=== PATIENT | female | born 1975 | race Caucasian/White ===

== ENCOUNTER 2020-02-09 12:34 | Emergency (ER) | payer OTHER, SELFPAY ==
--- NOTE | ~2020-02-09 | CT_ITS ---
EXAMINATION: CT abdomen pelvis wo con DATE: 02/09/2020 16:36 INDICATION: Left flank pain and dysuria. TECHNIQUE: Computed tomography (CT) of the abdomen and pelvis was performed without intravenous contr ast. Automated exposure control and iterative reconstruction technique were employed. The dose-length product was 1027.30 mGy-cm. COMPARISON: 05/24/2018 FINDINGS: Couple 2 mm pulmonary nodules, calcified on the left and noncalcified on the right. Mild atelectasis/ scarring at the lingula, right middle lobe and left lower lobe. Heart size is normal. No pericardial or pleural effusion. Small sliding-type hiatal hernia. Liver, gallbladder, spleen, pancreas and bilat eral adrenal glands are normal. Prominent bilateral medullary nephrocalcinosis. 1 mm stone at the dis talmost right ureter within 1 cm of the ureterovesicular junction. No stones seen along the left uret er. No hydronephrosis in either kidney. There is mild colonic diverticulosis with a sigmoid predomina nce. There is no adjacent inflammatory change to suggest diverticulitis. Small bowel and appendix ar e normal. The partially decompressed bladder is unremarkable. Again seen are couple surgical clips al dariana the left ovary and left side of the uterus. Right adnexa is unremarkable. No free intraperitoneal gas or fluid. No pathologically enlarged abdominal or pelvic lymphadenopathy. Tiny fat-containing um bilical hernia. Mild scattered degenerative skeletal changes in the spine and at both hips. IMPRESSION: 1. Extensive bilateral renal medullary nephrocalcinosis with 4 mm nonobstructing stone at the distalm ost RIGHT ureter. No hydronephrosis or left ureteral stones. 2. Mild diverticulosis. 3. Small sliding-type hiatal hernia. Reviewed, dictated and finalized at location A. IMPRESSION: 1. Extensive bilateral renal medullary nephrocalcinosis with 4 mm nonobstructin g stone at the distalmost RIGHT ureter. No hydronephrosis or left ureteral ston es. 2. Mild diverticulosis. 3. Small sliding-type hiatal hernia.
[2020-02-09 12:53] VITALS: BP 144/100; PULSE 98; RESP 18; TEMP 37.1; O2SAT 100
[2020-02-09 13:56] LABS: Basophils Percent Auto 0.4 % (0.2-1.2); Eosinophils Absolute Auto 0.1 K/mm3 (0-0.3); Eosinophils Percent Auto 1.3 % (0-4.4); Hematocrit 43.7 % (37.0-47.0); Hemoglobin 13.5 g/dL (12.0-15.0); Immature Granulocyte Absolute 0.04 K/mm3 (0.00-0.031); Immature Granulocyte Percent A 0.4 % (0-0.5); Lymphocytes Absolute Auto 2.58 K/mm3 (0.9-3.2); Lymphocytes Percent Auto 23.9 % (18.3-44.2); Mean Corpuscular HGB Conc 30.9 g/dl (32-36); Mean Corpuscular Volume 87.4 fl (80-100); Mean Platelet Volume 9.6 fl (7.4-10.4); Monocytes Absolute Auto 0.6 K/mm3 (0.1-0.6); Monocytes Percent Auto 5.4 % (2.6-8.5); Neutrophils Absolute Auto 7.4 K/mm3 (1.3-6.7); Neutrophils Percent Auto 68.6 % (45.5-73.1); Platelet Count Result 227 k/mm3 (150-375); Red Cell Distribution Width 16.1 % (11.5-14.5); White Blood Count 10.8 K/mm3 (4.5-10.0)
[2020-02-09 14:28] LABS: Alanine Aminotransferase 28 U/L (4-35); Alkaline Phosphatase 86 U/L (38-126); Aspartate Amino Transferase 29 U/L (14-36); Bilirubin,Total 0.8 mg/dL (0.2-1.3); Blood Urea Nitrogen 21 mg/dL (7-17); Calcium 9.2 mg/dL (8.4-10.2); Carbon Dioxide 21 mmol/L (22-30); Chloride 106 mmol/L (98-107); Estimated Glomerular Filt Rate 18; Glucose 93 mg/dL (65-105); Potassium 4.1 mmol/L (3.4-5.0); Sodium 137 mmol/L (137-145)
[2020-02-09 14:29] LABS: Lactic Acid Reflex 0.8 mmol/L (0.7-2.1)
[2020-02-09 14:30] LABS: CRP 2.2 mg/dL (<1.0)
--- NOTE | 2020-02-09 14:30 | ECG_ITS ---
Measurements Intervals [place] Rate: 79 P: 1 AK: 134 QRS: -6 QRSD: 102 T: 16 QT: 370 QTc: 424 Interpretive Statements SINUS RHYTHM DELAYED PRECORDIAL R/S TRANSITION BORDERLINE ECG Electronically Signed On 02-09-2020 15:24:27 CDT by Adelso Russ D.O.
[2020-02-09 14:42] LABS: Add Urine Microscopic? YES; Appearance Urine Clear (Clear); Bacteria Urine Trace /hpf; Bilirubin Urine Negative (Negative); Blood Urine Negative (Negative); Color Urine Straw (Yellow); Glucose Urine UA Negative (Negative); Ketones Urine Negative (Negative); Leukocyte Esterase Ur Trace LEU/UL (Negative); Mucus Urine Rare /lpf; Nitrate Urine Negative (Negative); Protein Urine 3+ mg/dL (Negative); RBC Urine 0-2 /hpf (0-2); Specific Grav Ur 1.011 (1.001-1.035); Squamous Epithelial Cell Urine Moderate /hpf (Few); Urobilinogen Urine Negative mg/dL (<2.0)
[2020-02-09] MEDS: SODIUM CHLORIDE 0.9% IV 1,000 ML 999 ML IV CONT (14:52)
[2020-02-09 15:48] VITALS: BP 138/88; PULSE 88; RESP 16; O2SAT 98
--- NOTE | 2020-02-09 16:23 | ED.GENADULT ---
HPI - General Adult General Chief complaint: Unspecified Stated complaint: SHAKING,CHILLS, BODY ACHES Time Seen by Provider: 02/09/20 13:35 Source: patient Mode of arrival: ambulatory Limitations: no limitations History of Present Illness HPI narrative: This is a 44 year old female that presents to the ER for weakness. Reports for the last 2 days she has had chills. Reports this is usually how she feels when she has a kidney infection. Reports some discomfort with urination. Reports left-sided flank pain. Also reports some right lower quadrant cramping abdominal pain. Reports history of chronic kidney disease, she sees a paper grader in [place]. Also reports history of kidney stones, her urologist is also in [place]. Denies fever, nausea, vomiting, or hematuria. Related Data Home Medications Medication Instructions Recorded Confirmed fluoxetine mg 02/09/20 hydrocodone-acetaminophen 02/09/20 02/09/20 magnesium oxide 02/09/20 sodium bicarbonate 02/09/20 Allergies Allergy/AdvReac Type Severity Reaction Status Date / Time Cephalosporins Allergy Intermediate RASH Verified 02/09/20 12:55 Quinolones Allergy Unknown RASH Verified 02/09/20 12:55 Sulfa (Sulfonamide Allergy Unknown RASH Verified 02/09/20 12:55 Antibiotics) sulfamethoxazole Allergy Unknown RASH Verified 02/09/20 12:55 vancomycin AdvReac Intermediate RED MAN Verified 02/09/20 12:55 SYNDROME bactim Allergy Severe Rash Uncoded 05/24/18 17:40 Review of Systems Review of Systems: Narrative: CONSTITUTIONAL: Denies fever GASTROINTESTINAL: Reports abdominal pain. Denies nausea, vomiting, or diarrhea. GENITOURINARY: Reports dysuria. Denies hematuria. MUSCULOSKELETAL: Reports back pain All systems reviewed & are unremarkable except as noted in HPI and below PMFSH Past Medical History Medical History (Updated 02/09/20 @ 18:36 by Sara Maharaj PA-C) History of chronic kidney disease History of depression Social History Social History Gender identity (if verbalized by the patient): Female Exam Narrative: Exam Narrative: GENERAL: Well-appearing, well-nourished, and in no acute distress. HEAD: Normocephalic, atraumatic. EYES: EOMI. CHEST: Clear to auscultation. No respiratory distress. No wheezes rales or rhonchi HEART: Regular rate and rhythm. No murmur heard. Normal peripheral pulses. ABDOMEN: Soft, nontender, nondistended, normal active bowel sounds. No CVA tenderness EXTREMITIES: Normal range of motion. No edema. SKIN: Warm, dry, no rash. NEURO: No focal deficits. Alert and oriented x3. PSYCH: Normal mood and affect Course Consultations Consultation #1: Spoke with on-call urology at [place], Dr. Jones who will get message to patient's urologist Dr. Cobb. Patient will be sent home with urine strainer, Flomax and antibiotic. Date: 02/09/20 Time: 18:32 Vital Signs Vital signs: Vital Signs Temperature 98.7 F 02/09/20 12:53 Pulse Rate 98 02/09/20 12:53 Respiratory Rate 18 02/09/20 12:53 Blood Pressure 144/100 H 02/09/20 12:53 Pulse Oximetry 100 02/09/20 12:53 Temperature 98.7 F 02/09/20 12:53 Pulse Rate 88 02/09/20 15:48 Respiratory Rate 16 02/09/20 15:48 Blood Pressure 138/88 02/09/20 15:48 Pulse Oximetry 98 02/09/20 15:48 Medical Decision Making MDM Narrative Medical decision making narrative: Patient presents the emergency department for flank pain and abdominal pain. Also was reporting subjective fevers. Patient is afebrile and nontoxic-appearing. CBC with mild leukocytosis to 10.8. Metabolic panel with kidney function that is likely around patient's baseline as she reports she has stage IV kidney kidney disease. UA with white blood cells and trace leuk esterase, also with squamous epithelial cells. Unsure if this is a contaminated catch. This will go for a culture. CT scan of the abdomen and pelvis shows bilateral renal medullary nephrocalcinosis with a 4 mm nonobstructing stone a
== END 2020-02-09 19:07 | disposition home or self-care (01) ==
PROVIDERS: Physician Assistant; Emergency Provider Emergency Medicine; PCP Physician Assistant
DX: N20.0 Calculus of kidney (principal); N30.00 Acute cystitis without hematuria; N18.9 Chronic kidney disease, unspecified; Z87.442 Personal history of urinary calculi; R94.31 Abnormal electrocardiogram [ECG] [EKG]; K44.9 Diaphragmatic hernia without obstruction or gangrene; K57.90 Diverticulosis of intestine, part unspecified, without perforation or abscess without bleeding; F32.9 Major depressive disorder, single episode, unspecified
CPT/HCPCS: 36415; 74176; 80053; 81001; 81025; 83605; 85025; 86140; 87086; 87088; 93005; 96365; 99284; J0131; J7030

== ENCOUNTER 2020-09-13 14:56 | Outpatient (CLI) | payer OTHER, SELFPAY ==
--- NOTE | ~2020-09-13 | MM_ITS ---
EXAMINATION: MM screening [facility] HISTORY: Screening mammogram TECHNIQUE: Craniocaudal and mediolateral oblique 3-D tomosynthesis images were obtained and synthetic 2-D images were generated. CAD analysis was submitted and interpreted. COMPARISON: 07/20/2018, 06/10/2016 bilateral digital screening mammogram examinations BREAST PARENCHYMAL COMPOSITION: There are scattered areas of fibroglandular density. FINDINGS: There is no evidence of suspicious mass, calcification, or architectural distortion to sugg est malignancy in either breast. There has been no suspicious interval change. IMPRESSION: 1. No mammographic evidence of malignancy. 2. Recommend routine screening mammography in one year. BI-RADS Category 1: Negative Reviewed, dictated and finalized at location A. PATH THERAPIST
== END 2020-09-13 14:57 | disposition home or self-care (01) ==
LOC: ANHIMG 14:59
PROVIDERS: PCP Physician Assistant; Visit Provider Physician Assistant
DX: Z12.31 Encounter for screening mammogram for malignant neoplasm of breast (principal)
CPT/HCPCS: 77063; 77067

== ENCOUNTER 2021-09-14 15:34 | Outpatient (CLI) | payer OTHER, SELFPAY ==
--- NOTE | ~2021-09-14 | MM_ITS ---
EXAMINATION: MM screening [facility] BI w michael HISTORY: Screening mammogram TECHNIQUE: Craniocaudal and mediolateral oblique 3-D tomosynthesis images were obtained and synthetic 2-D images were generated. CAD analysis was submitted and interpreted. COMPARISON: 09/13/2020, 07/20/2018, 06/10/2016 BREAST PARENCHYMAL COMPOSITION: There are scattered areas of fibroglandular density. FINDINGS: There is no evidence of suspicious mass, calcification, or architectural distortion to sugg est malignancy in either breast. There has been no suspicious interval change. IMPRESSION: 1. No mammographic evidence of malignancy. 2. Recommend routine screening mammography in one year. BI-RADS Category 1: Negative Reviewed, dictated and finalized at location A. BLE TRACER
== END 2021-09-14 15:35 | disposition home or self-care (01) ==
LOC: ANHIMG 15:35
PROVIDERS: PCP Physician Assistant; Visit Provider Physician Assistant
DX: Z12.31 Encounter for screening mammogram for malignant neoplasm of breast (principal)
CPT/HCPCS: 77063; 77067

== ENCOUNTER 2023-01-13 14:46 | Outpatient (CLI) | payer OTHER, SELFPAY ==
--- NOTE | ~2023-01-13 | MM_ITS ---
EXAMINATION: MM screening [facility] BI w michael HISTORY: Screening mammogram TECHNIQUE: Craniocaudal and mediolateral oblique 3-D tomosynthesis images were obtained and synthetic 2-D images were generated. CAD analysis was submitted and interpreted. COMPARISON: 09/14/2021, 09/13/2020, 07/20/2018 BREAST PARENCHYMAL COMPOSITION: There are scattered areas of fibroglandular density. FINDINGS: No suspicious mass, calcification, or architectural distortion are identified in either andrea ast to suggest malignancy. There has been no suspicious interval change. IMPRESSION: 1. No mammographic evidence of malignancy. 2. Recommend routine screening mammography in one year. BI-RADS Category 1: Negative Reviewed, dictated and finalized at location A.
== END 2023-01-13 14:47 | disposition home or self-care (01) ==
LOC: ANHIMG 14:48
PROVIDERS: PCP Physician Assistant; Visit Provider Physician Assistant
DX: Z12.31 Encounter for screening mammogram for malignant neoplasm of breast (principal)
CPT/HCPCS: 77063; 77067

== ENCOUNTER 2024-04-12 09:39 | Outpatient (CLI) | payer OTHER, SELFPAY ==
--- NOTE | ~2024-04-12 | MM_ITS ---
EXAMINATION: MM screening [facility] HISTORY: Screening TECHNIQUE: Craniocaudal and mediolateral oblique 3-D tomosynthesis images were obtained and synthetic 2-D images were generated. CAD analysis was submitted and interpreted. COMPARISON: Comparison to multiple prior studies sequentially, with oldest reviewed study dated 05/25. BREAST PARENCHYMAL COMPOSITION: Not dense: There are scattered areas of fibroglandular density. FINDINGS: There is no evidence of suspicious mass, calcification, or architectural distortion to sugg est malignancy in either breast. There has been no suspicious interval change. IMPRESSION: 1. No mammographic evidence of malignancy. 2. Recommend routine screening mammography in one year. BI-RADS Category 1: Negative Reviewed, dictated and finalized at location B.
== END 2024-04-12 09:40 | disposition home or self-care (01) ==
PROVIDERS: PCP Physician Assistant; Visit Provider Physician Assistant
DX: Z12.31 Encounter for screening mammogram for malignant neoplasm of breast (principal)
CPT/HCPCS: 77063; 77067

== ENCOUNTER 2025-07-26 14:26 | Outpatient (CLI) | payer OTHER, SELFPAY ==
--- NOTE | ~2025-07-26 | MM_ITS ---
EXAMINATION: MM screening yosvany BI w michael HISTORY: Screening. TECHNIQUE: Craniocaudal and mediolateral oblique 3-D tomosynthesis images were obtained and synthetic 2-D images were generated. CAD analysis was submitted and interpreted. COMPARISON: 2023, 2022, and 2021 BREAST PARENCHYMAL COMPOSITION: Dense: The breasts are heterogeneously dense FINDINGS: No suspicious masses are seen. There are no suspicious calcifications. No unexplained architectural distortion is seen. There are no skin or nipple abnormalities identified. There is no adenopathy seen on the images submitted. IMPRESSION: No mammographic evidence to suggest malignancy is seen. The patient may return to screening mammography as per ACR guidelines. BI-RADS 1 - Negative. Reviewed, dictated and finalized at location B. [employer] OPERATOR
--- OUTSIDE RECORDS SUMMARY | 2025-07-26 15:46 | XMS_ITS | Encounter Summary ---
Author Organization [facility] Healthcare Address [address] [place] [address] Care Team Providers Care Cold Storage Worker Name Role Phone Lelia Owen Primary Care Provider [phone] Stu Lee MD Unavailable [phone] Uday Gamble RN Unavailable Encounter Details Date Type Department Care Team (Late st Contact Info) Description 05/26/2025 Results Follow-Up [facility] Medical Group Convenient Care at [address] [address] Riri Conde PA [address] [place] [address] [address] [place] [address] Urine culture Urine, clean voided Social History Tobacco Use Types Packs/Day Years Used Date Smoking Tobacco: Never Smokeless Tobacco: Never Alcohol Use Standard Drinks/Week Comments Yes 0 (1 standard drink = 0.6 oz pur e alcohol) rare Social Connection and Isolation Panel Answer Date Recorded In a typical week, how many times do you talk on the phone with family, friends, or neighbors? More than three times a week 07/10/2022 How often do you get togethe r with friends or relatives? Three times a week 07/10/2022 How often do you attend chur ch or sabianist services? More than 4 times per year 07/10/2022 Do you belong to any clubs o r organizations such as restorationist groups, unions, fraternal or athletic groups, or school groups? Yes 07/10/2022 How often do you attend meet ings of the clubs or organizations you belong to? More than 4 times per year 07/10/2022 Are you , , di vorced, , never , or living with a partner? 07/10/2022 AUDIT-C Answer Date Recorded Q1: How often do you have a drink containing alcohol? Never 03/01/2025 Q2: How many drinks containi ng alcohol do you have on a typical day when you are drinking? Patient does not drink Q3: How often do you have si x or more drinks on one occasion? Never 03/01/2025 Overall Financial Resource Strain (CARDIA) Answe r Date Recorded How hard is it for you to pa y for the very basics like food, housing, medical care, and heating? Not hard at all 07/10/2022 PHQ-2 Answer Date Recorded PHQ-2 Total Score (If total score is 3 or more points, staff should administer the PHQ-9) 0 03/01/2025 Hunger Vital Sign Answer Date Recorded Within the past 12 months, y ou worried that your food would run out before you got the money to buy more. Never true 09/25/19 24 Within the past 12 months, t he food you bought just didn't last and you didn't have money to get more. Never true 09/25/2023 PRAPARE - Transportation Answer Date Re corded In the past 12 months, has l ack of transportation kept you from medical appointments or from getting medications? No 06/25 In the past 12 months, has l ack of transportation kept you from meetings, work, or from getting things needed for daily living? No 07/10/2022 Personal Safety Answer Date Recorded Have you ever been in or are you currently in a harmful physical or emotional relationship or is someone making you feel afraid or unsafe? 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 Gender Identity Female 01/12/2021 10:32 AM CDT Sexual Orientation Straight 05/05/2019 9: 16 AM CDT documented as of this encounter Plan of Treatment Not on file documented as of this encounter Visit Diagnoses Not on filedocumented in this encounter Care Teams Cold Storage Worker Relationship Specialty Start Date End Date Lelia Owen PA [address] [place] [address] PCP - General 07/04/17 Stu Lee MD [address] [facility] [address] [place], [place] [id number] Referring Physician Nephrology 06/14/21 Uday Gamble, RN [address] [facility] [address] [place] [address] E Learning Developer 07/09/22 documented as of this encounter
--- OUTSIDE RECORDS SUMMARY | 2025-07-26 15:46 | XMS_ITS | Clinical Summary ---
Author Organization [facility] Address [address] [place] [address] Care Team Providers Care Combatant Diver Officer Name Role Phone Unavailable Primary Care Provider Unavailabl e Social History Tobacco Use Types Packs/Day Years Used Date Smoking Tobacco: Never Assessed Comments Unknown Sex and Gender Information Value Date Recorded Sex Assigned at Not on file Legal Sex Female 7:22 PM CDT Gender Identity Not on file Sexual Orientation Not on file Plan of Treatment Health Maintenance Due Date Last Done Comments Cervical Cancer Screening Pap Smear (Age 30 to 64) Every 3 Years 1975 Colorectal Cancer Screening Colonoscopy (10 Years) 1975 Annual Physical 1978 Hepatitis C 1993 Cervical Cancer Screening Pap with HPV Testing (Age 30 to 64) Every 5 Years 2005 Cervical Cancer Screening with HPV 2005 Mammogram Screening 2015 Hepatitis B Vaccines (3 of 3 - 19+ 3-dose series) 04/12/2022 11/24/2021, 10/13/2021 COVID-19 Vaccine (3 - 2024- season) 2025 12/27/2021, 10/31/2020 Pneumococcal Vaccine: 50+ Years (1 of 1 - PCV) 2025 Zoster Vaccines (1 of 2) 2025 Influenza Adult (#1) 2025 08/23/2022, 05/25/2021, 05/31/2020, Additional history exists DTaP, Tdap and Td Vaccines (2 - Td or Tdap) 05/08/2027 05/08/2017 Hepatitis A Vaccines Aged Out No long er eligible based on patient's age to complete this topic Meningococcal B Vaccine Aged Out No l onger eligible based on patient's age to complete this topic Meningococcal Vaccine Aged Out No queta ana luisa eligible based on patient's age to complete this topic RSV Immunizations Under 20 Months Aged Out No longer eligible based on patient's age to complete this topic
--- OUTSIDE RECORDS SUMMARY | 2025-07-26 15:46 | XMS_ITS | Encounter Summary ---
Author Organization [facility] Healthcare Address [address] [facility] [place] [address] Care Team Providers Care Cover Making Machine Operator Name Role Phone Lelia Owen Primary Care Provider + [phone] Stu Lee MD Unavailable [phone] Uday Gamble RN Unavailable Encounter Details Date Type Department Care Team (Late st Contact Info) Description 07/05/2025 Results Follow-Up [facility] Medical Group Family Medicine [address] [facility] [address] [address] [place] [address] Lelia Owen PA [address] [facility] [facility] [address] [facility] [address] [place] [address] Vitamin B12 Social History Tobacco Use Types Packs/Day Years [...] week 07/10/2022 How often do you attend [facility] or anabaptism services? 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 [address] [place] [address] Loan Operations Specialist 07/09/22 documented as of this encounter
--- OUTSIDE RECORDS SUMMARY | 2025-07-26 15:46 | XMS_ITS ---
Author Organization [facility] Healthcare Address [address] [place] [address] Care Team Providers Care Business Analytics Manager Name Role Phone Lelia Owen Primary Care Provider [phone] Stu Lee MD Unavailable [phone] Uday Gamble RN Unavailable Transplant Episode Kidney Recipient [facility] ([place], [place]) - [facility] Organ Received: Left Kidney Transplanted on 07/09/2022 Marked as Active Follow-up on 07/09/2022 Reason: Transplanted at [facility] Kidney CoordinatorUday Gamble RN Fax: N/A Email: N/A Infection History Noted Survival Infection Treatment Organism Resolved 08/23/2022 45 days Kidney transplant infection Donor Information Organ ABO Source Meets Risk Criteria HLA Match Mismatches Cross Match Left Kidney Transplanted O Positive Live A: B: DR: Left Kidney Donor Serology Results Anti-CMV CMV IgG: Positive EBV IgG EBV VCA IgG: Positive Anti-HBcAb HBC Total: Nonreactive HBsAg HBsAg: Nonreactive HBV DNA HBV DNA: Not Detected Anti-HCV HCV Ab: Nonreactive Anti-HIV I/II HIV Ag/Ab Combo Assay: Nonreactive Anti-HTLV I/II No results on file RPR/VDRL RPR: Nonreactive EBV IgM No results on file HBsAb HBsAb: Nonreactiv e EBNA No results on file SARS CoV-2 No results on file Care Team Name Role Phone Fax Email Uday Gamble, ARCHANA Kidney Coordinator [phone] N/A N/A Stu Lee MD Referring Physician [phone] N/A Leonora Parra Secondary Manager Compensation N/A N/A N/A Uday Gamble RN Storage Battery Tester [phone] N/A N/A Tere Araya RN Pre Coordinator [phone] N/A Scotty Crespo Primary Manager Compensation N/A N/A N/A Krystyna Hayward Administrative Personal Assistant [phone] N/A N/A Jumana Crespo RN Secondary Coordinator Secondary Post Kidney Coordinator [phone] N/A N/A Events Post-Transplant Pre-Transplant Admitted: 07/09/2022 Referred: 06/12/2021 Transplanted: 07/09/2022 Evaluation began: 1 Discharged: 07/16/2022 Committee: 09/24/2021 Center waitlisted: 2
--- OUTSIDE RECORDS SUMMARY | 2025-07-26 15:46 | XMS_ITS | Clinical Summary ---
Author Organization [facility] Address [address] [place] [address] Care Team Providers Care Appliance Adjuster Name Role Phone Lelia Owen Primary Care Provider [phone] Stu Lee MD Unavailable [phone] Uday Gamble RN Unavailable Allergies Active Allergy Reactions Criticality Noted Date Comments Cefazolin Sodium Rash Medium 06/26/2023 Levofloxacin Rash Medium Sulfa (Sulfonamide Antibiotics) Rash Medium 05/04/2020 Sulfamethoxazole-Trimethopr im Rash Medium 06/26/2023 Vancomycin Rash Medium 06/26/2023 Patient had knee surgery in 2023 and received vancomycin with no reaction. Medications Tri-Yusra 0.01-4-0.05 % creamIndicati ons:ago spots Apply topically nightly 03/25/20 23 Active cholecalcifer ol (VITAMIN D-3) 2000 unit tabletIndicat ions:suppleme nt-transplant Take 1 tablet (2,000 Units total) by mouth every morning 90 tablet 3 06/12/20 23 Active famotidine (PEPCID) 20 mg tablet Take 1 tablet (20 mg total) by mouth as needed for heartburn Active ferrous sulfate 325 mg (65 mg of elemental iron) tabletIndicat ions:Iron Deficiency Anemia Take 1 tablet (325 mg total) by mouth daily with breakfast Active vitamins K6-C3-B6-B12- protease 2.5 mg-2.5 mg- 5 mg-100 mcg tablet Take by mouth Active tirzepatide (MOUNJARO) 5 mg/0.5 mL pen injector DIRECTED SUBCUTANEOUSLY ONCE A WEEK Active FLUoxetine (PROzac) 20 mg capsuleIndica tions:Moderat e episode of recurrent major depressive disorder (HCC) TAKE ONE CAPSULE BY MOUTH DAILY ALONG WITH 40MG 90 capsule 1 01/25/20 25 Active tacrolimus XR (ENVARSUS XR) 1 mg tablet extended release 24 hrIndications :immunosuppre ssion Take 3 tablets (3 mg total) by mouth daily 90 tablet 11 01/27/20 25 2025 Active celecoxib (CeleBREX) 100 mg capsule Take 1 capsule (100 mg total) by mouth daily 30 capsule 04/20/20 25 Active FLUoxetine (PROzac) 40 mg capsuleIndica tions:Anxiety TAKE 1 CAPSULE(40 MG) BY MOUTH EVERY MORNING 90 capsule 1 04/26/[address] (PROTONIX) 40 mg EC tablet TAKE ONE TABLET BY MOUTH EVERY MORNING 90 tablet 3 05/12/20 25 Active ALPRAZolam (XANAX) 0.5 mg tabletIndicat ions:Anxiety TAKE 1 TABLET(0.5 MG) BY MOUTH EVERY 8 HOURS NEEDED FOR ANXIETY 20 tablet 06/14/20 25 Active aspirin 81 mg enteric coated tablet TAKE ONE TABLET BY MOUTH EVERY MORNING 90 tablet 3 06/14/20 25 Active predniSONE (DELTASONE) 5 mg tablet TAKE ONE TABLET BY MOUTH EVERY MORNING 90 tablet 3 06/14/20 25 Active lisinopriL (PRINIVIL,ZES TRIL) 2.5 mg tabletIndicat ions:Kidney replaced by transplant TAKE 1 TABLET(2.5 MG) BY MOUTH DAILY 30 tablet 11 07/13/20 25 Active lisinopriL (PRINIVIL,ZES TRIL) 2.5 mg tabletIndicat ions:Kidney replaced by transplant Take 1 tablet (2.5 mg total) by mouth daily 90 tablet 2 06/21/20 25 2024 Discontinued Active Problems Patient Care Coordination No te Formatting of this note migh t be different from the original. Verbal Consent: Deangelo (spouse), Madhu (son), Mariely ([id number]) Pharmacy: [facility] Specialty: [facility]: P: [phone] F: [phone] Q-MONTHLY, FK, UPE; Q-3 ROUTINE (Exp 08/31/25) HH: [facility] *Labs starting Thursday 07/19 due to the holiday. Problem Noted Date Diagnosed Date Arthritis of right hand 04/21/2025 BMI 37.0-37.9, adult 09/02/2024 Assessment & Plan (03/01/2025 7:31 AM CDT): Discussed the patient's BMI. The BMI is above average. BMI management plan is completed. BMI Follow-up includes: nutrition counseling, exercise counseling and education provided. Assessment & Plan (09/02/2024 7:45 AM PASSENGER CAR CLEANING SUPERVISOR): Discussed the patient's BMI. The BMI is above average. BMI management plan is completed. BMI Follow-up includes: nutrition counseling, exercise counseling and education provided. Stage 3b chronic kidney disease 03/09/2024 Assessment & Plan (09/12/2024 9:04 PM PASSENGER CAR CLEANING SUPERVISOR): Avoid nephrotoxic drugs including NSAIDs. Monitor labs. Assessment & Plan (03/09/2024 9:42 AM CDT): Avoid nephrotoxic drugs including NSAIDs. Monitor labs. Hypertension, renal disease, stage 1-4 or unspecified chronic kidney disease 03/09/2024 Assessment & Plan (09/12/2024 9:05 PM PASSENGER CAR CLEANING SUPERVISOR): Bp is stable/in acceptable range for any co-morbidities. Encouraged to limit sodium intake and exercise for weight control. Avoid nephrotoxic drugs including NSAIDs. Monitor labs. Continue lisinopril 2.5 Assessment & Plan (03/09/2024 9:44 AM CDT): Bp is stable/in acceptable range for any co-morbidities. Encouraged to limit sodium intake and exercise for weight control. Avoid nephrotoxic drugs including NSAIDs. Monitor labs. Continue Zestril 2.5 Dysphagia 05/06/2023 Morbid obesity 01/15/2023 Assessment & Plan (03/01/2025 7:31 AM CDT): Discussed the patient's BMI. The BMI is above average. BMI management plan is completed. BMI Follow-up includes: nutrition counseling, exercise counseling and education provided. Assessment & Plan (09/12/2024 9:05 PM PASSENGER CAR CLEANING SUPERVISOR): Discussed the patient's BMI. The BMI is above average. BMI management plan is completed. BMI Follow-up includes: nutrition counseling, exercise counseling and education provided. Patient has an obesity-related condition (not limited to: hypertension, obstructive sleep apnea, osteoarthritis, hyperlipidemia, diabetes, etc.). Therefore, morbid obesity may be documented for patients with a BMI between 35.00-39.99. Assessment & Plan (03/09/2024 9:41 AM CDT): Discussed the patient's BMI. The BMI is above average. BMI management plan is completed. BMI Follow-up includes: nutrition counseling, exercise counseling and education provided. Discussed weight management issues for approximately 15 minutes. Encouraged to log all food/drink/intake to determine daily caloric intake. Reviewed 3500 calories = 1# of weight so have to register a deficit to lose. Discussed obtaining this by decreasing daily caloric intake and or increasing exercise. Discussed decreasing carbs. Maintaining enough protein. Monitor/be aware of serving size. Increase water. Avoid sugar sweetened drinks. Discussed SG LT ease and provide the names of ones that can use for weight loss. Encouraged her to check with her insurance for coverage as well with the transplant team and if this is an option we will consider Assessment & Plan (10/27/2023 7:26 AM PASSENGER CAR CLEANING SUPERVISOR): Discussed the patient's BMI. The BMI is above average. BMI management plan is completed. BMI Follow-up includes: nutrition counseling, exercise counseling and education provided. Assessment & Plan (01/27/2023 2:01 PM CDT): Discussed the patient's BMI. The BMI is above average. BMI management plan is completed. BMI Follow-up includes: nutrition counseling, exercise counseling and education provided. Patient has an obesity-related condition (not limited to: hypertension, obstructive sleep apnea, osteoarthritis, hyperlipidemia, diabetes, etc.). Therefore, morbid obesity may be documented for patients with a BMI between 35.00-39.99. Dyslipidemia 12/23/2022 Assessment & Plan (03/09/2024 9:40 AM CDT): Encouraged patient to follow low fat/low chol diet like the Mediterranean diet. Increase good fats in the diet. Increase exercise. Monitor labs as needed. Assessment & Plan (01/27/2023 2:00 PM CDT): Encouraged patient to follow low fat/low chol diet like the Mediterranean diet. Increase good fats in the diet. Increase exercise. Monitor labs as needed. Encounter for long-term (cur rent) use of high-risk medication 12/23/2022 Assessment & Plan (09/12/2024 9:04 PM PASSENGER CAR CLEANING SUPERVISOR): Continue per renal transplant team as she is on immunosuppressant medications Assessment & Plan (01/27/2023 2:01 PM CDT): Continue per transplant team Kidney transplant infection 08/23/2022 Perinephric fluid collection of kidney transplan t 08/13/2022 Assessment & Plan (08/13/2022 7:56 PM PASSENGER CAR CLEANING SUPERVISOR): - Doing well since hospital discharge. She has no fevers, chills, or other signs or symptoms concerning for infection. No urinary symptoms. She is tolerating antibiotics well. Renal function continues to improve. Imaging from yesterday shows resolution of perinephritic fluid collection. I expect her IR drain will be removed later today. - Continue IV ceftriaxone to complete planned 4 week course for treatment of post-transplant perinephritic fluid collection and UTI. FIRM STOP on 08/20/22. Central line should be removed when IV antibiotics are completed. - I will discuss with transplant team if they feel additional oral antibiotics are necessary given early infection after transplant. If so, I would recommend they give an oral 3rd generation cephalosporin as her Bactrim OI prophylaxis will not provide any coverage for the E coli that was isolated. - Discussed with patient the rational for treatment, culture results, risk of recurrent infection, signs/symptoms of recurrent infection, and to contact ID clinic with any questions or concerns Kidney replaced by transplant 07/15/2022 Assessment & Plan (09/12/2024 9:04 PM PASSENGER CAR CLEANING SUPERVISOR): Continue per renal transplant team Assessment & Plan (03/09/2024 9:39 AM CDT): Status post kidney transplant. Continue per transplant team Assessment & Plan (01/27/2023 2:00 PM CDT): Continue per transplant team Assessment & Plan (09/21/2022 8:25 PM PASSENGER CAR CLEANING SUPERVISOR): Status post transplant in 06/2022 ESRD (end stage renal disease) 07/09/2022 Immunosuppression 06/28/2022 Assessment & Plan (09/12/2024 9:04 PM PASSENGER CAR CLEANING SUPERVISOR): Patient on lifetime immunosuppressants due to renal transplant status Assessment & Plan (09/21/2022 8:25 PM PASSENGER CAR CLEANING SUPERVISOR): Continue per transplant team as on multiple medicines following transplant Psychophysiological insomnia 01/09/2022 Nonsmoker 01/09/2022 Arthritis of carpometacarpal (CMC) joint of righ t thumb 12/12/2021 H/O total vaginal hysterectomy 03/02/2021 Overview (03/19/2021): Dr. Louis 03/02/2021 Vaginal HYST with BSO Assessment & Plan (03/19/2021 3:53 PM CDT): Recovering well. Denies Vasomotor sxs. F.u With Dr. Louis to discuss ERT if needed. Diabetes mellitus screening 03/19/2020 Assessment & Plan (09/12/2024 9:05 PM PASSENGER CAR CLEANING SUPERVISOR): Check labs Assessment & Plan (03/09/2024 9:39 AM CDT): Check labs Assessment & Plan (03/19/2020 11:39 PM CDT): Check labs Breast cancer screening by mammogram 03/19/2020 Assessment & Plan (09/12/2024 9:05 PM PASSENGER CAR CLEANING SUPERVISOR): Mammogram order provided Assessment & Plan (03/09/2024 9:39 AM CDT): Mammogram order provided Assessment & Plan (09/21/2022 8:24 PM PASSENGER CAR CLEANING SUPERVISOR): Mammogram order provided Assessment & Plan (09/15/2021 8:24 PM PASSENGER CAR CLEANING SUPERVISOR): Mammogram order provided Assessment & Plan (03/19/2020 11:39 PM CDT): Mammogram order provided. History of total knee arthroplasty 01/18/2020 Osteoarthritis 11/01/2019 Abscess 07/10/2019 Assessment & Plan (07/10/2019 8:30 PM PASSENGER CAR CLEANING SUPERVISOR): Unable to obtain a culture from the open/draining abscess. Start Keflex. Keep area clean and dry. Warm compress as needed. Call with increased sxs/signs infection/problems. Osteoarthritis of left knee 06/01/2019 Right hand pain 05/31/2019 Secondary hyperparathyroidism ([facility]) 05/04/20 19 Assessment & Plan (03/19/2020 11:37 PM CDT): Continue per nephrology Arthritis of carpometacarpal (CMC) joint of left thumb 12/09/2018 Nephrolithiasis 07/28/2018 Overview (07/28/2018): Added automatically from request for surgery [id number] RTA (renal tubular acidosis) 05/18/2018 Assessment & Plan (04/15/2022 12:55 AM CDT): Continue per Nephrology. Patient is on transplant list and her has been declared a match. Planning transplant in June Assessment & Plan (03/19/2021 3:56 PM CDT): Continue per nephrology. States has one more draw for renal function with Dr. Louis Assessment & Plan (03/19/2020 11:37 PM CDT): Continue per nephrology Chronic anxiety 01/26/2018 Assessment & Plan (03/09/2024 9:39 AM CDT): Stable with Prozac 40. And Xanax p.r.n.. Assessment & Plan (04/15/2022 12:56 AM CDT): This is a significant, separately identifiable problem that was evaluated and managed on the same day as the wellness exam Patient has noted increased anxiety symptoms with everything that is going on with transplant as well as her dog has been sick. She has been a Prozac 20 mg with Xanax p.r.n.. Noting she is using more p.r.n. Xanax. Will increase the Prozac to 40 mg. Reassess in 6-8 weeks Assessment & Plan (09/15/2021 8:23 PM PASSENGER CAR CLEANING SUPERVISOR): Stable continue Prozac and Xanax p.r.n. 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 SNAP home study Assessment & Plan (09/21/2022 8:24 PM PASSENGER CAR CLEANING SUPERVISOR): Encouraged follow-up with sleep medicine as soon as it is safe based on her transplant. Assessment & Plan (02/11/2022 4:40 PM CDT): Discussed comorbidities associated with sleep apnea, including effects on weight, and stressed importance of adequate treatment if present. Sleep center appointment planned for 02/2022 Assessment & Plan (09/01/2020 11:08 PM PASSENGER CAR CLEANING SUPERVISOR): Will try to track down the sleep study to see if she can get a new machine or if needs a new study. Request from [facility]. Assessment & Plan (03/19/2020 11:40 PM CDT): This is a significant, separately identifiable problem that was evaluated and managed on the same day as the wellness exam Needs to use the CPAP Will place new order with [facility] so she can get a new machine. Gastroesophageal reflux disease without esophagi tis 11/04/2016 Assessment & Plan (09/12/2024 9:04 PM PASSENGER CAR CLEANING SUPERVISOR): Continue PPI. If symptoms and coughing continues may need to follow back up with Dr. Pascal to determine if she needs to have dilatation again. Assessment & Plan (03/19/2020 11:36 PM CDT): Stable without medication Dysmenorrhea 01/04/2016 Moderate episode of recurrent major depressive d isorder 11/30/2015 Assessment & Plan (09/12/2024 9:04 PM PASSENGER CAR CLEANING SUPERVISOR): Depression symptoms stable. Continue the Prozac 40+ 24 total of 60 daily and the Xanax p.r.n.. Assessment & Plan (03/09/2024 9:39 AM CDT): Stable with Prozac 40 and Xanax p.r.n.. Assessment & Plan (10/27/2023 1:12 PM PASSENGER CAR CLEANING SUPERVISOR): Patient is recognizing some increased emotional symptoms but admits to a lot of changes at home. She still thinks it may be related to the persistent and required prednisone use due to her kidney transplant. Currently on Prozac 60 mg. Will continue with that medication. Discussed counseling and scheduling a different things that she can do to help address some of her concerns. Strongly encouraged her to work on these. If her symptoms increase she can call at any time and we can adjust medications but discussed the benefit of doing counseling to see if we can do some lifestyle changes and behavioral changes prior to adding in more medication. She is also very concerned about her weight. Provided information on G [facility] then she will check with her insurance as well as the transplant team to see if this may be available as an option at some point to assist in weight loss as this also plays into her depression symptoms. Assessment & Plan (01/27/2023 2:02 PM CDT): Will continue the Prozac 40. Will continue to monitor closely if she feels like her symptoms continue to peak may consider changing medications for better control. Assessment & Plan (09/21/2022 8:26 PM PASSENGER CAR CLEANING SUPERVISOR): Stable with Prozac 40. Assessment & Plan (06/01/2022 6:51 PM CDT): Improvement with increase the Prozac to 40 mg. Will continue with same dose. Using less Xanax but I wonder have it available if she goes since at this time of transplant. Continue to monitor. Assessment & Plan (04/15/2022 12:56 AM CDT): This is a significant, separately identifiable problem that was evaluated and managed on the same day as the wellness exam Patient has noted increased anxiety symptoms with everything that is going on with transplant as well as her dog has been sick. She has been a Prozac 20 mg with Xanax p.r.n.. Noting she is using more p.r.n. Xanax. Will increase the Prozac to 40 mg. Reassess in 6-8 weeks Assessment & Plan (03/19/2021 3:57 PM CDT): Stable with Prozac and prn Xanax Assessment & Plan (02/15/2021 8:07 AM CDT): Stable with prozac Assessment & Plan (02/10/2021 7:57 PM CDT): Discussed depression at length including treatment options of medication, counseling and behavioral modification. Encouraged good sleep hygeine, good nutrition and exercise. Will continue to monitor closely. Currently no suicidal or homicidal thoughts. May call at anytime if needs assistance. Will restart Prozac 20mg daily Reviewed risks, benefit, alternatives, side effects and proper use. F.u 4-6 weeks to reassess. Assessment & Plan (09/01/2020 11:10 PM PASSENGER CAR CLEANING SUPERVISOR): Patient stopped Prozac. She feels like her sxs are currently stable without medication. Will monitor closely to see if pushes into remission. Assessment & Plan (03/19/2020 11:38 PM CDT): Continue Prozac Fatigue 11/30/2015 Assessment & Plan (09/12/2024 9:05 PM PASSENGER CAR CLEANING SUPERVISOR): Probably multifactorial. Check labs and followup to re-evaluate Assessment & Plan (03/09/2024 9:39 AM CDT): Probably multifactorial. Check labs and followup to re-evaluate Assessment & Plan (02/11/2022 4:29 PM CDT): Labs. Discussed importance of adequate sleep; good sleep hygiene in controlling weight as well as for overall health. Assessment & Plan (03/19/2020 11:38 PM CDT): Probably multifactorial. Check labs and followup to re-evaluate Vitamin D deficiency 11/30/2015 Assessment & Plan (09/12/2024 9:05 PM PASSENGER CAR CLEANING SUPERVISOR): Supplement Assessment & Plan (03/09/2024 9:39 AM CDT): Supplement Assessment & Plan (02/11/2022 4:38 PM CDT): Labs. On supplement daily. Assessment & Plan (03/19/2020 11:37 PM CDT): supplement Renal osteodystrophy 01/31/2014 Medullary sponge kidney 03/25/2007 Resolved Problems Problem Noted Date Diagnosed Date Resolved Date Annual physical exam 03/09/2024 025 Assessment & Plan (03/09/2024 9:42 AM CDT): Encouraged healthy lifestyle, good nutrition and exercise. Encouraged Calcium and Vitamin D and weight bearing exercise for bone health. Reviewed immunizations Reviewed age appropirate screenings. BMI 40.0-44.9, adult 03/08/2024 025 Assessment & Plan (03/08/2024 7:47 AM CDT): Discussed the patient's BMI. The BMI is above average. BMI management plan is completed. BMI Follow-up includes: nutrition counseling, exercise counseling and education provided. Arthritis of left knee 12/30/202303/08 BMI 40.0-44.9, adult 05/06/2023 024 Assessment & Plan (10/27/2023 7:26 AM PASSENGER CAR CLEANING SUPERVISOR): Discussed the patient's BMI. The BMI is above average. BMI management plan is completed. BMI Follow-up includes: nutrition counseling, exercise counseling and education provided. Assessment & Plan (05/06/2023 11:15 AM CDT): Discussed the patients BMI: The BMI is above average BMI management is complete. BMI follow-up includes: Nutrition Counseling and education provided BMI 39.0-39.9,adult 01/15/2023 10/27/19 24 Assessment & Plan (01/15/2023 3:29 PM CDT): Discussed the patient's BMI. The BMI is above average. BMI management plan is completed. BMI Follow-up includes: nutrition counseling, exercise counseling and education provided. Gallstones 08/29/2022 09/21/2022 Overview (08/29/2022): Added automatically from request for surgery [id number] HANK (acute kidney injury) 07/22/2022 Metabolic and nutritional disorder 02/11/2022 09/12/2024 Assessment & Plan (04/17/2022 8:45 PM CDT): Reviewed interim labs. Continue low-carb (<150 g/day), low-glycemic diet. Will discuss possible use of GLP-1 RA with nephrology. Assessment & Plan (02/11/2022 4:41 PM CDT): Labs. Discussed increased risk for DM in setting of obesity and FHx DM. Discussed insulin resistance including effect on weight and risk for progression to diabetes. Recommended low-carb, low-glycemic diet; choose whole grains and avoid more highly processed carbohydrates. Discussed potential benefits of this w/r/t gut microbiome. Referred to ADA and [employer] websites for additional information on topics including glycemic index/carbohydrate choices, protein sources. Referred to check with service secretary/transplant team on dietary protein limitations. More detailed recommendations pending review of labs and food record. Class 2 obesity with body ma ss index (BMI) of 37.0 to 37.9 in adult 02/11/2022 09/21/2022 Assessment & Plan (04/17/2022 9:19 PM CDT): Obesity is unchanged. Diet interventions: as noted. Regular aerobic exercise program discussed. Pharmacotherapy as ordered. Discussed options limited by CKD, nephrolithiasis and sulfa allergy. Assessment & Plan (02/11/2022 4:37 PM CDT): General weight loss/lifestyle modification strategies discussed (elicit support from others; identify saboteurs; non-food rewards, etc). Diet interventions: as noted. Informal exercise measures discussed, e.g. taking stairs instead of elevator. Regular aerobic exercise program discussed. More detailed recommendations pending review of labs and food record. Weight loss counseling, encounter for 02/11/2022 09/12/2024 Assessment & Plan (04/17/2022 8:44 PM CDT): Reviewed calorie restriction based on BMR as previously detailed. Reviewed recommendation/goal of >/= 150 minutes/week moderate-intensity aerobic exercise. Asked to keep detailed food diary for at least 1 week and bring to next visit and/or continue tracking on phone. Assessment & Plan (02/11/2022 4:37 PM CDT): Discussed that significant health benefits/risk reduction may be seen with even 5% weight loss. Discussed that weight loss will require calorie deficit. Calculated basal metabolic rate and estimated total energy expenditure; discussed 500-1000 kcal/day deficit to lose 1-2 lb per week. Asked to keep detailed food diary for at least 1 week and bring to next visit. Discussed setting SMART goals. Discussed relatively small, although significant, role of exercise in weight loss; greater importance in weight maintenance as shown in [employer] study and National Weight Control Registry. Discussed recommendation/goal for 150 minutes per week moderate-intensity aerobic exercise. Arthralgia of left knee 12/17/202102/22 Right wrist pain 12/12/2021 09/12/2024 Colon cancer screening 09/15/202109/12 Assessment & Plan (01/27/2023 2:00 PM CDT): Colonoscopy is scheduled. Will await results Assessment & Plan (09/21/2022 8:24 PM PASSENGER CAR CLEANING SUPERVISOR): Transplant team would like her to have colonoscopy and not rely on the Cologuard. Order placed for Dr. Mathis. Assessment & Plan (09/15/2021 8:25 PM PASSENGER CAR CLEANING SUPERVISOR): Cologuard order placed Morbid obesity 09/03/2021 01/15/2023 Assessment & Plan (09/21/2022 8:24 PM PASSENGER CAR CLEANING SUPERVISOR): Discussed the patient's BMI. The BMI is above average. BMI management plan is completed. BMI Follow-up includes: nutrition counseling, exercise counseling and education provided. Patient has an obesity-related condition (not limited to: hypertension, obstructive sleep apnea, osteoarthritis, hyperlipidemia, diabetes, etc.). Therefore, morbid obesity may be documented for patients with a BMI between 35.00-39.99. Assessment & Plan (06/01/2022 6:51 PM CDT): Discussed the patient's BMI. The BMI is above average. BMI management plan is completed. BMI Follow-up includes: nutrition counseling, exercise counseling and education provided. Patient has an obesity-related condition (not limited to: hypertension, obstructive sleep apnea, osteoarthritis, hyperlipidemia, diabetes, etc.). Therefore, morbid obesity may be documented for patients with a BMI between 35.00-39.99. Assessment & Plan (04/15/2022 12:57 AM CDT): Discussed the patient's BMI. The BMI is above average. BMI management plan is completed. BMI Follow-up includes: nutrition counseling, exercise counseling and education provided. Patient has an obesity-related condition (not limited to: hypertension, obstructive sleep apnea, osteoarthritis, hyperlipidemia, diabetes, etc.). Therefore, morbid obesity may be documented for patients with a BMI between 35.00-39.99. Assessment & Plan (09/03/2021 4:11 PM PASSENGER CAR CLEANING SUPERVISOR): Obesity is unchanged. Discussed the patient's BMI. The BMI is above average. BMI management plan is completed. BMI Follow-up includes: nutrition counseling, exercise counseling and education provided. BMI 38.0-38.9,adult 09/03/2021 01/16/20 23 Assessment & Plan (09/21/2022 8:24 PM PASSENGER CAR CLEANING SUPERVISOR): Discussed the patient's BMI. The BMI is above average. BMI management plan is completed. BMI Follow-up includes: nutrition counseling, exercise counseling and education provided. Assessment & Plan (06/01/2022 6:51 PM CDT): Discussed the patient's BMI. The BMI is above average. BMI management plan is completed. BMI Follow-up includes: nutrition counseling, exercise counseling and education provided. Assessment & Plan (04/15/2022 12:57 AM CDT): Discussed the patient's BMI. The BMI is above average. BMI management plan is completed. BMI Follow-up includes: nutrition counseling, exercise counseling and education provided. Assessment & Plan (09/03/2021 4:11 PM PASSENGER CAR CLEANING SUPERVISOR): Obesity is unchanged. Discussed the patient's BMI. The BMI is above average. BMI management plan is completed. BMI Follow-up includes: nutrition counseling, exercise counseling and education provided. COVID-19 09/03/2021 09/21/2022 Overview (09/03/2021): -- while in [place]. Had Regeneron mAb while there. Annual physical exam 03/19/2021 023 Assessment & Plan (04/15/2022 12:56 AM CDT): Encouraged healthy lifestyle, good nutrition and exercise. Encouraged Calcium and Vitamin D and weight bearing exercise for bone health. Reviewed immunizations Reviewed age appropirate screenings. Assessment & Plan (03/19/2021 2:23 PM CDT): Encouraged healthy lifestyle, good nutrition and exercise. Encouraged Calcium and Vitamin D and weight bearing exercise for bone health. Reviewed immunizations Reviewed age appropirate screenings. Obesity (BMI 30-39.9) 03/19/20212021 Assessment & Plan (03/19/2021 3:33 PM CDT): Obesity is unchanged. Discussed the patient's BMI. The BMI is above average. BMI management plan is completed. BMI Follow-up includes: nutrition counseling, exercise counseling and education provided. BMI 37.0-37.9, adult 03/19/2021 022 Assessment & Plan (03/19/2021 3:33 PM CDT): Obesity is unchanged. Discussed the patient's BMI. The BMI is above average. BMI management plan is completed. BMI Follow-up includes: nutrition counseling, exercise counseling and education provided. BMI 38.0-38.9,adult 02/13/2021 03/19/20 21 Assessment & Plan (02/13/2021 3:50 PM CDT): Obesity is unchanged. Discussed the patient's BMI. The BMI is above average. BMI management plan is completed. BMI Follow-up includes: nutrition counseling, exercise counseling and education provided. Obesity (BMI 30-39.9) 02/13/20212020 Assessment & Plan (02/13/2021 3:50 PM CDT): Obesity is unchanged. Discussed the patient's BMI. The BMI is above average. BMI management plan is completed. BMI Follow-up includes: nutrition counseling, exercise counseling and education provided. Acute cystitis without hematuria 02/06/2021 03/08/2024 Assessment & Plan (02/06/2021 11:46 AM CDT): Will start cipro - she reports she takes it often without SEs and that it's the only thing that works for her UTIs. Will culture urine Advised f/u in 72h if not improving, sooner if worsening Advised tylenol q6h prn fever/pain Pelvic cramping 02/06/2021 03/08/2024 Assessment & Plan (02/15/2021 8:05 AM CDT): UTI appears to be resolving. She is still having abdominal pain. She is scheduled for ultrasound tomorrow morning. Will await those results. If she has increased pain fever chills or sweats she is to consider ER. Will follow-up with patient pending these ultrasound results. We will send tramadol a short course to hold her over until we determine the underlying cause of the pain. Assessment & Plan (02/06/2021 11:45 AM CDT): Will evaluate further with transvaginal US. She was advised to contact her wigs salesperson for further evaluation and treatment. Obesity (BMI 30-39.9) 01/25/20212020 Assessment & Plan (01/25/2021 10:43 AM CDT): Obesity is unchanged. Discussed the patient's BMI. The BMI is above average. BMI management plan is completed. BMI Follow-up includes: nutrition counseling, exercise counseling and education provided. BMI 38.0-38.9,adult 01/25/2021 02/14/20 Assessment & Plan (02/06/2021 11:22 AM CDT): Obesity is unchanged. Discussed the patient's BMI. The BMI is above average. BMI management plan is completed. BMI Follow-up includes: nutrition counseling, exercise counseling and education provided. Assessment & Plan (01/25/2021 10:44 AM CDT): Obesity is unchanged. Discussed the patient's BMI. The BMI is above average. BMI management plan is completed. BMI Follow-up includes: nutrition counseling, exercise counseling and education provided. BMI 39.0-39.9,adult 08/28/2020 01/26/20 21 Assessment & Plan (08/28/2020 3:50 PM PASSENGER CAR CLEANING SUPERVISOR): Obesity is unchanged. Discussed the patient's BMI. The BMI is above average. BMI management plan is completed. BMI Follow-up includes: nutrition counseling, exercise counseling and education provided. Annual physical exam 03/19/2020 021 Assessment & Plan (03/19/2020 11:39 PM CDT): Encouraged healthy lifestyle, good nutrition and exercise. Encouraged Calcium and Vitamin D and weight bearing exercise for bone health. Reviewed immunizations Reviewed age appropirate screenings. Lipid screening 03/19/2020 03/08/2024 Assessment & Plan (02/11/2022 4:39 PM CDT): Labs. Discussed role of diet, exercise and weight loss in improving lipid profile. Assessment & Plan (03/19/2020 11:39 PM CDT): Check labs Frequent urination 02/09/2020 Assessment & Plan (02/06/2021 11:46 AM CDT): Will start cipro - she reports she takes it often without SEs and that it's the only thing that works for her UTIs. Will culture urine Advised f/u in 72h if not improving, sooner if worsening Advised tylenol q6h prn fever/pain Assessment & Plan (02/09/2020 1:29 PM CDT): Proteinuria/trace blood/leukocytes. Could be UTI. Will defer to ER for treatment to get other labs. Palpitations 02/09/2020 09/12/2024 Assessment & Plan (02/09/2020 1:28 PM CDT): EKG is normal. Must rule out infection/sepsis, increased renal problems, PE. Needs labs, CXR to start workup but patient doesn't think she has the energy/ability to go to the different places right now to get stat results. Pt to go to ER to complete workup. Plans Raj. Obesity (BMI 30-39.9) 02/09/20202020 Assessment & Plan (09/01/2020 11:09 PM PASSENGER CAR CLEANING SUPERVISOR): Obesity is unchanged. Discussed the patient's BMI. The BMI is above average. BMI management plan is completed. BMI Follow-up includes: nutrition counseling, exercise counseling and education provided. Assessment & Plan (03/19/2020 11:37 PM CDT): Obesity is unchanged. Discussed the patient's BMI. The BMI is above average. BMI management plan is completed. BMI Follow-up includes: nutrition counseling, exercise counseling and education provided. Assessment & Plan (02/09/2020 1:30 PM CDT): Obesity is unchanged. Discussed the patient's BMI. The BMI is above average. BMI management plan is completed. BMI Follow-up includes: nutrition counseling, exercise counseling and education provided. Stage 4 chronic kidney disease 08/12/2019 03/08/2024 BMI 38.0-38.9,adult 07/08/2019 08/28/19 21 Assessment & Plan (03/19/2020 11:38 PM CDT): Obesity is unchanged. Discussed the patient's BMI. The BMI is above average. BMI management plan is completed. BMI Follow-up includes: nutrition counseling, exercise counseling and education provided. Assessment & Plan (02/09/2020 11:37 AM CDT): Obesity is unchanged. Discussed the patient's BMI. The BMI is above average. BMI management plan is completed. BMI Follow-up includes: nutrition counseling, exercise counseling and education provided. Assessment & Plan (07/08/2019 11:59 AM PASSENGER CAR CLEANING SUPERVISOR): Obesity is unchanged. Discussed the patient's BMI. The BMI is above average. BMI management plan is completed. BMI Follow-up includes: nutrition counseling, exercise counseling and education provided. Obesity (BMI 30-39.9) 07/08/20192019 Assessment & Plan (07/08/2019 12:00 PM PASSENGER CAR CLEANING SUPERVISOR): Obesity is unchanged. Discussed the patient's BMI. The BMI is above average. BMI management plan is completed. BMI Follow-up includes: nutrition counseling, exercise counseling and education provided. CKD (chronic kidney disease), stage III 05/18/2018 05/28/2021 Assessment & Plan (03/19/2021 3:56 PM CDT): Continue per nephrology. States has one more draw for renal function with Dr. Louis Assessment & Plan (03/19/2020 11:37 PM CDT): Avoid nephrotoxic drugs including NSAIDs. Monitor labs. Continue per nephrology Other chronic pain 04/13/2018 4 Daytime sleepiness 05/08/2017 0 Hypertension 05/03/2015 03/08/2024 Assessment & Plan (02/11/2022 4:39 PM CDT): Reviewed role of diet, exercise, weight loss in controlling blood pressure. Recommended low sodium/DASH diet. Assessment & Plan (03/19/2021 3:55 PM CDT): Bp is stable/in acceptable range for any co-morbidities. Encouraged to limit sodium intake and exercise for weight control. Currently stable without medication Assessment & Plan (09/01/2020 11:09 PM PASSENGER CAR CLEANING SUPERVISOR): Continue per nephrology as has CKD Assessment & Plan (03/19/2020 11:36 PM CDT): Bp is stable/in acceptable range for any co-morbidities. Encouraged to limit sodium intake and exercise for weight control. Stable without medication at this point Assessment & Plan (02/09/2020 1:26 PM CDT): Elevated today Metabolic acidosis 01/31/2014 Encounter for preventive health examination 06/12/2009 03/19/2020 Encounters Date Type Department Care Team Description 07/22/2025 Orders Only [facility] Medicine Nephrology [address] [facility] 5th [place] [address] [place] [address] Dutch Hodges MD 07/05/2025 Results Follow-Up [address] [place] [address] Lelia Owen PA Vitamin B12 06/21/2025 Orders Only [facility] Medicine Nephrology [address] [facility] 5[address] [place] [address] [place] [address] Dutch Hodges MD 05/26/2025 Results Follow-Up [facility] Care at [address] [phone] Riri Conde PA Urine culture Urine, clean voided 05/24/2025 3:34 PM CDT - 05/24/2025 11:59 PM CDT Hospital Encounter [address] [address] Acute right-sided low back pain without sciatica Discharge Disposition: Discharge to home or self care 05/24/2025 3:15 PM CDT Office Visit [facility] Care at [address] [phone] Scotty Dougherty NP Acute right-sided low back pain without sciatica (Primary Dx); History of kidney transplant 05/24/2025 Telephone [facility] Transplant Kidney [address] [facility] [address] [phone] [place] [address] Uday Gamble, ARCHANA 05/24/2025 Nurse Triage [address] [place] [address] Lelia Owen PA 05/19/2025 Orders Only [facility] Medicine Nephrology [address] [facility] [address] [place] [address] [place] [address] Dutch Hodges MD from Last 3 Months Immunizations Immunization Administration Dates Next Due COVID-19 mRNA ([employer]) 0.3 m L (30 mcg) vaccine (12 years and up) 06/11/2024 Hep A, Adult 03/12/2024,08/29/2023 Hep A, Unspecified 02/23/2024 Hep B Vaccine 2022,11/24/2021,10/13/2021 Influenza, Quadrivalent, [place]inos[place] l Culture-based MDCK, Preservative Free, Antibiotic Free, Intramuscular 06/06/2023,05/26/2019 Influenza, Quadrivalent, Spl it, Preservative Free, Intramuscular 08/23/2022,05/31/2020,05/21/2018,05/20 Influenza, Trivalent, IM (MDV) ,05/25/2018,05/25/2017,06/13 Influenza, Trivalent, Preser vative Free, Intramuscular 06/11/2024 Influenza, Unspecified 06/06/2023,2022(Deferred: Patient Refused),08/25/2022(Deferred: Patient Refused),09/25/2021(Deferred: Patient Refused),09/25/2021(Deferred: Patient Refused),05/25/2021,05/25/2020, Parris Lambert ([employer]) SARS-CoV-2 Vaccination 10/31/2020 Pfizer SARS-CoV-2 Monovalent Vaccination (12+ Yrs) SESAY-READY TO USE 12/28/2021 Pfizer SARS-CoV-2 Monovalent Vaccination (12+ Yrs) PURPLE 12/27/2021 Pfizer Sars-Cov-2 Bivalent V accination (12+ YRS) 06/06/2023 Pneumococcal Conjugate Pcv20 05/16/2023 Tdap 05/08/2017 ZOSTER Recombinant 03/01/2025,12/13/2024 Surgical History Surgery Date Site/Laterality Comments IA LITHOTRIPSY XTRCORP SHOCK WAVE Renal Lithotripsy - 12/29 NAME OF OPERATION: Cystoscopy, bilateral retrograde urography, intraoperative interpretation of radiology, right percutaneous renal access and dilation of the percutaneous tract, right percutaneous nephrolithotomy, right flexible ureterorenosco (Added by TW Conv) IA BIOPSY MUSCLE SUPERFICIAL Biopsy Muscle - (Added by TW Conv) IA LIG/TRNSXJ FLP TUBE ABDL/VAG APPR UNI/BI Tubal Ligation - (Added by TW Conv) TOTAL KNEE ARTHROPLASTY 01/05/2020 Right HAND SURGERY 05/04/2020 Left lt thumb 1st cmc arthroplasty JOINT REPLACEMENT 12/24/2019 - 01/23/2020 r knee HYSTERECTOMY 02/22/2021 - 03/24/2021 TUBAL LIGATION 2000 US GUIDED ASPIRATION ABSCESS HEMATOMA CYST SOFT TISSUE 07/24/2022 N/A CENTRAL LINE PLACEMENT > 5 YEARS 07/29/2022 N/A ABSCESS CATHETER INJECTION 08/13/2022 N/A CHOLECYSTECTOMY 08/30/2022 KIDNEY SURGERY 06/25/2020 - 07/24/2020 percutanenous nephrolithotomy x3 [facility] K[facility]NEY TRANSPL[facility] 07/09/2022 Right METACARPOPHALANGEAL JOINT ARTHROPLASTY 08/05/2023 Left left 1st CMC arthroplasty HAND ARTHROPLASTY 08/05/2023 Right 1st CMC arthroplsty, ligament reconstruction Medical History Medical History Date Comments Personal history of other mental and behavioral disorders History of anxiety - (Added by TW Conv) Irritability and anger Irritabil ity - (Added by TW Conv) Sleep apnea wears cpap GERD (gastroesophageal reflu x disease) Renal disorder STAGE IV Kidney stone Kidney stone Depression Obesity Anxiety unknown, does not hester ppen frequently Motion sickness Hypertension 12/2022 diagnoses after kidney transplant Anemia hx of transfusio n with kidney stone surgery 2019 [facility] Family History Medical History Relation Name Comments Arthritis Father Dad Diabetes Father Dad Family history of diabetes mellitus - (Added by TW Conv) Heart disease Father Dad Obesity Mother Arthritis Paternal Grandfather Pop Arthritis Paternal Grandmother Mommom Obesity Sister Anesthesia problems Neg Hx Relation Name Status Comments Father Dad Alive Maternal Grandfather Maternal Grandmother Mother Alive Paternal Grandfather Pop Paternal Grandmother Mommom Sister Social History Tobacco Use Types Packs/Day Years Used Date Smoking Tobacco: Never Smokeless Tobacco: Never Tobacco Cessation:Counseling Given: Not Answered Alcohol Use Standard Drinks/Week Comments Yes 0 [...] often do you attend chur ch or sikh services? More than 4 times per year 07/10/2022 Do you belong to any clubs o r organizations such as synagogue groups, unions, fraternal or athletic groups, or [...] on file Legal Sex Female 9:13 PM PASSENGER CAR CLEANING SUPERVISOR Gender Identity Female 01/12/2021 10:32 AM CDT Sexual Orientation Straight 05/05/2019 9: 16 AM CDT Last Filed Vital Signs Vital Sign Reading Time Taken Comments Blood Pressure 99/66 05/24/2025 3:12 PM CDT Pulse 78 05/24/2025 3:12 PM CDT Temperature 37 C (98.6 F) 05/24/2025 3:12 PM CDT Respiratory Rate 20 05/24/2025 3:12 PM CDT Oxygen Saturation 98% 05/24/2025 3:12 PM CDT Inhaled Oxygen Concentration - - Weight 83.5 kg (184 lb) 05/24/2025 3:12 PM CDT Height 149.9 cm (4' 11.02) 03/23/2025 1:48 AM C DT Body Mass Index 37.14 03/23/2025 1:48 AM CDT Plan of Treatment Health Maintenance Due Date Last Done Comments Regular Well Visit/Exam 18-64 03/08/2025, 04/03/2022, 03/19/2021, Additional history exists Breast Cancer Screening-Mammogram 04/12/2025 04/12/2024, 01/13/2023, 09/14/2021, Additional history exists Covid-19 Vaccine (2024-2 6 season) 2025 06/11/2024, 06/06/2023, 06/06/2023, Additional history exists Influenza Vaccine (#1) 2025 , 06/06/2023, 06/06/2023, Additional history exists Depression Screening 03/01/2026 03/01/2025, 09/02/2024, 03/08/2024, Additional history exists DTaP/Tdap/Td Vaccine (2 - Td or Tdap) 05/08/2027 05/08/2017 Colon Cancer Screening-Colonoscopy 10/08/20282023 Hepatitis C Screening Completed 08/07/2022 , 07/10/2022, 07/10/2022, Additional history exists Pneumococcal vaccine <65 Completed 05/16/2023 Hepatitis B Screening Completed 08/29/2023 , 2022, 11/24/2021, Additional history exists Zoster Vaccine Completed 03/01/2025, 12/13/2024 Medical Devices Implanted Type Area Portable Machine Cutter Device Identifier Shelf Expiration Date Model / Serial / Lot [employer] Suture [place] Knotless Fibertak Resorbable [id number] - [id number] Implanted:Qty: 1 on 08/05/2023 by Alex Hebert MD at [facility] Right: Thumb [employer] [id number] 05/24/2028 [id number] / / [id number] [employer] Insert Tibial Knee Fixed Lm Posterior Stabilized Attune 5mm Size 4 Polyethylene [id number] - [id number] Implanted:Qty: 1 on 12/30/2023 at [facility] Left: Knee [employer] 08/24/2031 [id number] / / [id number] [employer] Attune Fb Tib Base Sz 4 Por [id number] - [id number] Implanted:Qty: 1 on 12/30/2023 at [facility] Left: Knee [employer] 08/24/2032 [id number] / / [id number] [employer] Attune Cruciate Retain Cementless Knee Left 4 Narrow Component [id number] - [id number] Implanted:Qty: 1 on 12/30/2023 at [facility] Left: Knee [employer] 06/24/2032 [id number] / / [id number] Explanted Type Area Portable Machine Cutter Device Identifier Shelf Expiration Date Model / Serial / Lot [employer] [id number] Inlay Schubert 6fr 24cm Pusher Fluoro Marker Atraumatic Insertion Latex Free - [id number] - [id number] Implanted:Qty : 1 on 09/21/2018 by Maricarmen Cobb MD at [facility] Explanted:Qty : 1 on 10/02/2018 by Chico Barillas NP Stent Left: Ureter [employer] [id number] 04/16/2023 [id number] / [id number] / [id number] [employer] Double-J 6fr 20cm 100cm 1 Step Insert Push Catheter [place] Suture [id number] - [id number] Implanted:Qty : 1 on 07/09/2022 by Uche Quach MD at [facility] Explanted:Qty : 1 on 08/07/2022 by Natalie Hatfield MD Stent Right: Transplanted Ureter [employer] [id number] 11/30/2026 [id number] / / [id number] Procedures Procedure Name Priority Date/Time Associated Diagnosis Comments TACROLIMUS, HIGHLY SENSITIVE, LC/MS/MS Routine 07/22/2025 8:12 AM PASSENGER CAR CLEANING SUPERVISOR PROTEIN / CREATININE RATIO, URINE, RANDOM Routine 07/22/2025 8:12 AM PASSENGER CAR CLEANING SUPERVISOR RENAL FUNCTION PANEL Routine 07/22/2025 8:12 AM PASSENGER CAR CLEANING SUPERVISOR CBC WITH AUTO DIFFERENTIAL Routine 07/22/2025 8:12 AM PASSENGER CAR CLEANING SUPERVISOR COPY(IES) SENT TO: Routine 07/22/2025 8: 12 AM PASSENGER CAR CLEANING SUPERVISOR VITAMIN B12 Routine 06/21/2025 7:23 AM CDT Elevated vitamin B12 level TACROLIMUS, HIGHLY SENSITIVE, LC/MS/MS Routine 06/21/2025 7:18 AM CDT PROTEIN / CREATININE RATIO, URINE, RANDOM Routine 06/21/2025 7:18 AM CDT RENAL FUNCTION PANEL Routine 06/21/2025 7:18 AM CDT CBC WITH AUTO DIFFERENTIAL Routine 06/21/2025 7:18 AM CDT COPY(IES) SENT TO: Routine 06/21/2025 7: 18 AM CDT URINE CULTURE Routine 05/24/2025 3:34 PM CDT Acute right-sided low back pain without sciatica POCT URINALYSIS DIPSTICK Routine 05/24/2025 3:23 PM CDT Acute right-sided low back pain without sciatica TACROLIMUS, HIGHLY SENSITIVE, LC/MS/MS Routine 05/19/2025 7:50 AM CDT PROTEIN / CREATININE RATIO, URINE, RANDOM Routine 05/19/2025 7:50 AM CDT RENAL FUNCTION PANEL Routine 05/19/2025 7:50 AM CDT CBC WITH AUTO DIFFERENTIAL Routine 05/19/2025 7:50 AM CDT COPY(IES) SENT TO: Routine 05/19/2025 7: 50 AM CDT SCREENING MAMMOGRAM BILATERAL W ASIF Schedule Routine, Read Routine (OP Routine) 04/12/2024 Breast cancer screening by mammogram HM COLONOSCOPY Routine 10/08/2023 10:44 AM PASSENGER CAR CLEANING SUPERVISOR HEPATITIS C RNA, QUANTITATIVE, PCR Routine 08/07/2022 12:24 PM PASSENGER CAR CLEANING SUPERVISOR Inconclusive laboratory evidence of human immunodeficiency virus (HIV) Aftercare following organ transplant from Last 3 Months or Most Recently Relevant to Health Maintenance Results * (ABNORMAL) Tacrolimus, Highly Sensitive, LC/MS/MS (07/22/2025 8:12 AM PASSENGER CAR CLEANING SUPERVISOR) Tacrolimus, Highly Sensitive, LC/MS/MS 4.7(L) mcg/L [facility] Comment: No definitive therapeutic or toxic ranges have been established. Optimal blood drug levels are influenced by type of transplant, patient response, time post- transplant, co-administration of other drugs, and drug formulation. The following trough range is a suggested guideline: 5.0-20.0 mcg/L. 07/22/2025 8:12 AM PASSENGER CAR CLEANING SUPERVISOR 07/22/2025 8:12 AM PASSENGER CAR CLEANING SUPERVISOR Narrative [facility] - 07/23/2025 3:36 PM PASSENGER CAR CLEANING SUPERVISOR RAW FASTING:YES AN UPDATE OR CORRECTION HAS BEEN MADE TO NAME FASTING: YES Dutch Hodges MD LAB BLOOD ORDERABLES Final R esult Performing Organization Address City/[facility]/ZIP Co de Phone Number [facility] [address] [place] [address] * COPY(IES) SENT TO: (07/22/2025 8:12 AM PASSENGER CAR CLEANING SUPERVISOR) COPY(IES) SENT TO: [facility] Comment: [facility] - COPY TO [place] [address] [place] [address] 07/22/2025 8:12 AM PASSENGER CAR CLEANING SUPERVISOR 07/22/2025 8:12 AM PASSENGER CAR CLEANING SUPERVISOR Narrative [facility] - 07/23/2025 3:36 PM PASSENGER CAR CLEANING SUPERVISOR RAW FASTING:YES AN UPDATE OR CORRECTION HAS BEEN MADE TO NAME FASTING: YES Dutch Hodges MD LAB BLOOD ORDERABLES Final R esult Performing Organization Address City/[facility]/ZIP Co de Phone Number [facility] * (ABNORMAL) CBC with auto differential (07/22/2025 8:12 AM PASSENGER CAR CLEANING SUPERVISOR) WBC 7.9 3.8 - 10.8 Thousand/u L [facility] RBC, POC 5.07 3.80 - 5.10 Million/uL [facility] Hgb 13.8 11.7 - 15.5 g/dL [facility] Hct 44.2 35.9 - 46.0 % [facility] MCV 87.2 81.4 - 101.7 fL [facility] MCH 27.2 27.0 - 33.0 pg [facility] MCHC 31.2(L) 31.6 - 35.4 g/dL [facility] Comment: For adults, a slight decrease in the calculated MCHC value (in the range of 30 to 32 g/dL) is most likely not clinically significant; however, it should be interpreted with caution in correlation with other red cell parameters and the patient's clinical condition. Rdw 14.6 11.0 - 15.0 % [facility] Platelets 201 140 - 400 Thousand/u L [facility] MPV 11.4 7.5 - 12.5 fL [facility] Neutrophils, abs 4,780 1,500 - 7,800 cells/uL [facility] Lymphocytes, abs 2,370 850 - 3,900 cells/uL [facility] Monocyte abs 577 200 - 950 cells/uL [facility] Eosinophils, abs 142 15 - 500 cells/uL [facility] Basophils, abs 32 0 - 200 cells/uL [facility] Neutrophils 60.5 % [facility] Lymphocyte pct 30.0 % [facility] Monocytes 7.3 % [facility] Eosinophils 1.8 % [facility] Basophils 0.4 % [facility] 07/22/2025 8:12 AM PASSENGER CAR CLEANING SUPERVISOR 07/22/2025 8:12 AM PASSENGER CAR CLEANING SUPERVISOR Narrative [employer] - 07/23/2025 3:36 PM PASSENGER CAR CLEANING SUPERVISOR RAW FASTING:YES AN UPDATE OR CORRECTION HAS BEEN MADE TO NAME FASTING: YES us Dutch Hodges MD LAB BLOOD ORDERABLES Final R esult [facility] [address] [place] [address] * (ABNORMAL) Protein / creatinine ratio, urine, random (07/22/2025 8:12 AM PASSENGER CAR CLEANING SUPERVISOR) Creatinine, ur 80 20 - 275 mg/dL [facility] Protein/creati nine ratio 200(H) 24 - 184 mg/g creat [facility] Protein/Creati nine Ratio 0.200(H) 0.024 - 0.184 mg/mg creat [facility] Protein, ur, quant 16 5 - 24 mg/dL [facility] 07/22/2025 8:12 AM PASSENGER CAR CLEANING SUPERVISOR 07/22/2025 8:12 AM PASSENGER CAR CLEANING SUPERVISOR Narrative [facility] - 07/23/2025 3:36 PM PASSENGER CAR CLEANING SUPERVISOR RAW FASTING:YES AN UPDATE OR CORRECTION HAS BEEN MADE TO NAME FASTING: YES us Dutch Hodges MD LAB URINE ORDERABLES Final R esult [facility] [address] [place] [address] * (ABNORMAL) Renal function panel (07/22/2025 8:12 AM PASSENGER CAR CLEANING SUPERVISOR) Glucose 78 65 - 99 mg/dL [facility] Comment: Fasting reference interval BUN 27(H) 7 - 25 mg/dL [facility] Creatinine 1.71(H) 0.50 - 1.03 mg/dL [facility] eGFR 36(L) > OR = 60 mL/min/1.7 3m2 [facility] BUN/creat ratio 16 6 - 22 (calc) [facility] Sodium 139 135 - 146 mmol/L [facility] Potassium, pl 4.4 3.5 - 5.3 mmol/L [facility] Chloride 107 98 - 110 mmol/L [facility] CO2 24 20 - 32 mmol/L [facility] Calcium 9.2 8.6 - 10.4 mg/dL [facility] Phosphorus, sr 3.2 2.5 - 4.5 mg/dL [facility] Albumin 3.9 3.6 - 5.1 g/dL [facility] 07/22/2025 8:12 AM PASSENGER CAR CLEANING SUPERVISOR 07/22/2025 8:12 AM PASSENGER CAR CLEANING SUPERVISOR Narrative [facility] - 07/23/2025 3:36 PM PASSENGER CAR CLEANING SUPERVISOR RAW FASTING:YES AN UPDATE OR CORRECTION HAS BEEN MADE TO NAME FASTING: YES us Dutch Hodges MD LAB BLOOD ORDERABLES Final R esult [facility] [address] [place] [address] * (ABNORMAL) Vitamin B12 (06/21/2025 7:23 AM CDT) Vitamin B12 1,158(H) 200 - 1,100 pg/mL [facility] Blood 06/21/2025 7:23 AM CDT 06/21/2025 7:24 AM CDT Lelia COPELAND LAB BLOOD ORDERABLES Final Result Performing Organization Address [facility] Co de Phone Number [facility] [address] [place] [address] * Tacrolimus, Highly Sensitive, LC/MS/MS (06/21/2025 7:18 AM CDT) Tacrolimus, Highly Sensitive, LC/MS/MS 6.0 mcg/L [facility] Comment: No definitive therapeutic or toxic ranges have been established. Optimal blood drug levels are influenced by type of transplant, patient response, time post- transplant, co-administration of other drugs, and drug formulation. The following trough range is a suggested guideline: 5.0-20.0 mcg/L. 06/21/2025 7:18 AM CDT 06/21/2025 7:19 AM CDT Narrative [facility] - 06/23/2025 8:14 AM CDT RAW FASTING:YES FASTING: YES Dutch Hodges MD LAB BLOOD ORDERABLES Final R esult Performing Organization Address [facility] Co de Phone Number [facility] [address] [place] [address] * COPY(IES) SENT TO: (06/21/2025 7:18 AM CDT) COPY(IES) SENT TO: [facility]ST Comment: [facility] - COPY TO [facility] [address] [place] [address] 06/21/2025 7:18 AM CDT 06/21/2025 7:19 AM CDT Narrative [facility] - 06/23/2025 8:14 AM CDT RAW FASTING:YES FASTING: YES Dutch Hodges MD LAB BLOOD ORDERABLES Final R esult [facility] * (ABNORMAL) CBC with auto differential (06/21/2025 7:18 AM CDT) Pathologist [facility] WBC 7.7 3.8 - 10.8 Thousand/u L [facility] RBC, POC 5.03 3.80 - 5.10 Million/uL [facility] Hgb 13.7 11.7 - 15.5 g/dL [facility] Hct 44.4 35.0 - 45.0 % [facility] MCV 88.3 80.0 - 100.0 fL [facility] MCH 27.2 27.0 - 33.0 pg [facility] MCHC 30.9(L) 32.0 - 36.0 g/dL [facility] Comment: For adults, a slight decrease in the calculated MCHC value (in the range of 30 to 32 g/dL) is most likely not clinically significant; however, it should be interpreted with caution in correlation with other red cell parameters and the patient's clinical condition. Rdw 14.9 11.0 - 15.0 % [facility] Platelets 217 140 - 400 Thousand/u L [facility] MPV 11.5 7.5 - 12.5 fL [facility] Neutrophils, abs 4,558 1,500 - 7,800 cells/uL [facility] Lymphocytes, abs 2,418 850 - 3,900 cells/uL [facility] Monocyte abs 554 200 - 950 cells/uL [facility] Eosinophils, abs 131 15 - 500 cells/uL [facility] Basophils, abs 39 0 - 200 cells/uL [facility] Neutrophils 59.2 % [facility] Lymphocyte pct 31.4 % [facility] Monocytes 7.2 % [facility] Eosinophils 1.7 % [facility] Basophils 0.5 % [facility] 06/21/2025 7:18 AM CDT 06/21/2025 7:19 AM CDT Narrative [facility] - 06/23/2025 8:14 AM CDT RAW FASTING:YES FASTING: YES Dutch Hodges MD LAB BLOOD ORDERABLES Final R esult Performing Organization Address [facility] Co de Phone Number [facility] [address] [place] [address] * (ABNORMAL) Protein / creatinine ratio, urine, random (06/21/2025 7:18 AM CDT) Creatinine, ur 81 20 - 275 mg/dL [facility] Protein/creati nine ratio 210(H) 24 - 184 mg/g creat [facility] Protein/Creati nine Ratio 0.210(H) 0.024 - 0.184 mg/mg creat [facility] Protein, ur, quant 17 5 - 24 mg/dL [facility] 06/21/2025 7:18 AM CDT 06/21/2025 7:19 AM CDT Narrative [facility] - 06/23/2025 8:14 AM CDT RAW FASTING:YES FASTING: YES Dutch Hodges MD LAB URINE ORDERABLES Final R esult Performing Organization Address [facility] Co de Phone Number [facility] [address] [place] [address] * (ABNORMAL) Renal function panel (06/21/2025 7:18 AM CDT) Glucose 91 65 - 99 mg/dL [facility] Comment: Fasting reference interval BUN 33(H) 7 - 25 mg/dL [facility] Creatinine 1.72(H) 0.50 - 1.03 mg/dL [facility] eGFR 36(L) > OR = 60 mL/min/1.7 3m2 [facility] BUN/creat ratio 19 6 - 22 (calc) [facility] Sodium 140 135 - 146 mmol/L [facility] Potassium, pl 4.2 3.5 - 5.3 mmol/L [facility] Chloride 109 98 - 110 mmol/L [facility] CO2 23 20 - 32 mmol/L [facility] Calcium 9.3 8.6 - 10.4 mg/dL [facility] Phosphorus, sr 3.3 2.5 - 4.5 mg/dL [facility] Albumin 4.1 3.6 - 5.1 g/dL [facility] 06/21/2025 7:18 AM CDT 06/21/2025 7:19 AM CDT Narrative [facility] - 06/23/2025 8:14 AM CDT RAW FASTING:YES FASTING: YES Dutch Hodges MD LAB BLOOD ORDERABLES Final R esult [facility] [address] [place] [address] * Urine culture Urine, clean voided (05/24/2025 3:34 PM CDT) Report Final Report: Less than 100,000 colonies/mL (clinically insignificant growth based on current clinical standards) Comment:Testing performed by : [facility], [address] [place]., [address] Organism (CLINICALLY INSIGNIFICANT GROWTH [facility] Urine, clean voided 05/24/2025 3:34 PM CDT 05/24/2025 10:26 PM CDT Narrative ANGY - 05/26/2025 8:04 AM CDT Testing performed by [facility] Microbiology Laboratory ([phone]) Scotty Dougherty NP LAB MICROBIOLOGY - GENERAL BRUCE CARPENTER Final Result [facility] [address] Department of Laboratories [place], [place] [id number] * (ABNORMAL) POCT urinalysis dipstick (05/24/2025 3:23 PM CDT) Color, Urine, POC Yellow Clarity, ur, POC Clear Clear Glucose, ur, POC Negative Negative Bilirubin, ur, POC Negative Negative Ketones, ur, POC Negative Negative Specific [place], POC 1.015 1.003 - 1.030 Blood, ur, POC Negative Negative pH, ur, POC 7.0 5.0 - 8.0 Protein, ur, POC Negative Negative Urobilinogen, urine, POC 0.2 0.2 - 1.0 mg/dL Nitrite, ur, POC Negative Negative Leukocytes, ur, POC Small(A) Negative Lot Number [id number] Urine 05/24/2025 3:23 PM CDT Result [facility] Scotty Dougherty NP POINT OF CARE TEST ORDERABLES F inal Result * Tacrolimus, Highly Sensitive, LC/MS/MS (05/19/2025 7:50 AM CDT) Tacrolimus, Highly Sensitive, LC/MS/MS 5.1 mcg/L [facility] Comment: No definitive therapeutic or toxic ranges have been established. Optimal blood drug levels are influenced by type of transplant, patient response, time post- transplant, co-administration of other drugs, and drug formulation. The following trough range is a suggested guideline: 5.0-20.0 mcg/L. 05/19/2025 7:50 AM CDT 05/19/2025 7:51 AM CDT Narrative [facility] - 05/20/2025 2:50 PM CDT RAW FASTING:NO FASTING: NO Result [facility] Dutch Hodges MD LAB BLOOD ORDERABLES Final R esult [facility] [address] [place] [address] * COPY(IES) SENT TO: (05/19/2025 7:50 AM CDT) COPY(IES) SENT TO: [facility] Comment: [facility] [address] [place] [address] 05/19/2025 7:50 AM CDT 05/19/2025 7:51 AM CDT Narrative [facility] - 05/20/2025 2:50 PM CDT RAW FASTING:NO FASTING: NO Result [facility] Dutch Hodges MD LAB BLOOD ORDERABLES Final R esult [facility] * (ABNORMAL) CBC with auto differential (05/19/2025 7:50 AM CDT) [facility] WBC 7.9 3.8 - 10.8 Thousand/u L [facility] RBC, POC 4.85 3.80 - 5.10 Million/uL [facility] Hgb 13.0 11.7 - 15.5 g/dL [facility] Hct 42.1 35.0 - 45.0 % [facility] MCV 86.8 80.0 - 100.0 fL [facility] MCH 26.8(L) 27.0 - 33.0 pg [facility] MCHC 30.9(L) 32.0 - 36.0 g/dL [facility] Comment: For adults, a slight decrease in the calculated MCHC value (in the range of 30 to 32 g/dL) is most likely not clinically significant; however, it should be interpreted with caution in correlation with other red cell parameters and the patient's clinical condition. Rdw 14.8 11.0 - 15.0 % [facility] Platelets 212 140 - 400 Thousand/u L [facility] MPV 10.8 7.5 - 12.5 fL [facility] Neutrophils, abs 4,606 1,500 - 7,800 cells/uL [facility] Lymphocytes, abs 2,678 850 - 3,900 cells/uL [facility] Monocyte abs 458 200 - 950 cells/uL [facility] Eosinophils, abs 119 15 - 500 cells/uL [facility] Basophils, abs 40 0 - 200 cells/uL [facility] Neutrophils 58.3 % [facility] Lymphocyte pct 33.9 % [facility] Monocytes 5.8 % [facility] Eosinophils 1.5 % [facility] Basophils 0.5 % [facility] 05/19/2025 7:50 AM CDT 05/19/2025 7:51 AM CDT Narrative [facility] - 05/20/2025 2:50 PM CDT RAW FASTING:NO FASTING: NO Dutch Hodges MD LAB BLOOD ORDERABLES Final R esult Performing Organization Address [facility] Co de Phone Number ROMMEL [facility] [address] [place] [address] * (ABNORMAL) Protein / creatinine ratio, urine, random (05/19/2025 7:50 AM CDT) Creatinine, ur 66 20 - 275 mg/dL [facility] Protein/creati nine ratio 242(H) 24 - 184 mg/g creat [facility] Protein/Creati nine Ratio 0.242(H) 0.024 - 0.184 mg/mg creat [facility] Protein, ur, quant 16 5 - 24 mg/dL [facility] 05/19/2025 7:5 0 AM CDT 05/19/2025 7:51 AM CDT Narrative [facility] - 05/20/2025 2:50 PM CDT RAW FASTING:NO FASTING: NO Dutch Hodges MD LAB URINE ORDERABLES Final R esult Performing Organization Address [facility] Co de Phone Number [facility] [address] [place] [address] * (ABNORMAL) Renal function panel (05/19/2025 7:50 AM CDT) Glucose 82 65 - 139 mg/dL [facility] Comment: Non-fasting reference interval BUN 33(H) 7 - 25 mg/dL [facility] Creatinine 1.64(H) 0.50 - 1.03 mg/dL [facility] eGFR 38(L) > OR = 60 mL/min/1.7 3m2 [facility] BUN/creat ratio 20 6 - 22 (calc) [facility] Sodium 138 135 - 146 mmol/L [facility] Potassium, pl 4.5 3.5 - 5.3 mmol/L [facility] Chloride 107 98 - 110 mmol/L [facility] CO2 22 20 - 32 mmol/L [facility] Calcium 9.2 8.6 - 10.4 mg/dL [facility] Phosphorus, sr 3.9 2.5 - 4.5 mg/dL [facility] Albumin 3.9 3.6 - 5.1 g/dL [facility] 05/19/2025 7:50 AM CDT 05/19/2025 7:51 AM CDT Narrative [facility] - 05/20/2025 2:50 PM CDT RAW FASTING:NO FASTING: NO Dutch Hodges MD LAB BLOOD ORDERABLES Final R esult [facility] [address] [place] [address] * Screening Mammogram Bilateral W Asif (04/12/2024) Anatomical Region Laterality Modality Breast Bilateral Mammography 04/12/2024 Lelia COPELAND IMG MAMMO PROCEDURES Edite d Result - Final * COLONOSCOPY (10/08/2023 10:44 AM PASSENGER CAR CLEANING SUPERVISOR) [facility] Scribed Colonoscopy Normal Historical Provider HEALTH MAINTENANCE Edited Result - Final * Hepatitis C (HCV) RNA PCR, quantitative (08/07/2022 12:24 PM PASSENGER CAR CLEANING SUPERVISOR) [facility] HCV RNA result Not Detected [facility] Comment: The quantifiable range of this assay is 15 IU/mL to 100,000,000 IU/mL (1.18 log IU/mL to 8.00 log IU/mL). Testing was performed by the MEL[facility] 6800 HCV Test ([employer] Testing performed at [facility] Current Interpretive Data was last revised on 2021 Blood 08/07/2022 12:2 4 PM PASSENGER CAR CLEANING SUPERVISOR 08/07/2022 1:34 PM PASSENGER CAR CLEANING SUPERVISOR us Brayden Brandt MD LAB MICROBIOLOGY - GENE RAL ORDERABLES Final Result [facility] Department [place] [address] from Last 3 Months or Most Recently Relevant to Health Maintenance Insurance [facility] CHOICE PLUS [facility] CHOICE PLUS [facility] CHOICE PLUS Advance Directives For more information, please contact: [phone] Documents on File Type Date Recorded Patient Finished Goods Planner Expl anation ADVANCE DIRECTIVE 07/01/2022 10:27 AM JARETH R OF [place] ROOM OPERATOR-MEDICAL * Full Code (Latest Code Status on File) Date Activated Date Inactivated Comments 12/30/2023 1:17 PM 01/01/2024 2:10 PM * Full Code Date Activated Date Inactivated Comments 08/23/2022 5:19 AM 08/23/2022 9:59 PM * Full Code Date Activated Date Inactivated Comments 08/13/2022 12:35 PM 08/14/2022 5:02 AM * Full Code Date Activated Date Inactivated Comments 07/22/2022 7:35 PM 07/30/2022 7:52 PM * Full Code Date Activated Date Inactivated Comments 07/09/2022 8:02 PM 07/16/2022 5:21 PM Care Teams Appliance Adjuster Relationship Specialty Start Date End Date Lelia Owen PA [address] [place] [address] PCP - General 07/04/17 Stu Lee MD [address] [facility] [address] [place] [address] Referring Physician Nephrology 06/14/21 Uday Gamble, RN [address] [facility] [address] [place] [address] Car Sweeper 07/09/22
--- OUTSIDE RECORDS SUMMARY | 2025-07-26 15:46 | XMS_ITS | Encounter Summary ---
Author Organization [facility] Facility Care Team Providers Care Cane Flume Chute Operator Name Role Phone Lelia Owen Primary Care Provider [phone] Stu Lee MD Unavailable [phone] Tere Araya RN Unavailable [phone] Uday Gamble RN Unavailable Encounter Details Date Type Department Care Team (Latest Contact Info) Description 09/21/2018 Orders Only [facility] CLINCONV ProviderKim MD [address] [place] [address] Social History Tobacco Use Types Packs/Day Years Used Date Smoking Tobacco: Never Smokeless Tobacco: Never Alcohol Use Standard Drinks/Week Comments Yes 0 (1 standard drink = 0.6 oz pur e alcohol) rare Comments No Sex and Gender Information Value Date Recorded Sex Assigned at Not on file Legal Sex Female 9:13 PM REAL ESTATE SITE ANALYST Gender Identity Female 01/12/2021 10:32 AM CDT Sexual Orientation Straight 05/05/2019 9: 16 AM CDT documented as of this encounter Functional Status * Question Answer Date of Assessment Author BP Location Right arm 09/21/2018 9:20 AM REAL ESTATE SITE ANALYST Sara Paul BP Method Automatic 09/21/2018 9:20 AM REAL ESTATE SITE ANALYST Sara Paul MAP (mmHg) 104 09/21/2018 10:30 AM REAL ESTATE SITE ANALYST Chap onda, Sara * Phelps Fall Risk Question Answer Date of Assessment Author History of Falling 0 09/21/2018 6:13 AM REAL ESTATE SITE ANALYST Georgina Elaine, RN Secondary Diagnosis 0 09/21/2018 6:13 AM Georgina Davis, collar runner Aids 0 09/21/2018 6:13 AM REAL ESTATE SITE ANALYST Georgina Araujo, RN Intravenous Therapy/Heparin/Saline Lock 0 09/21/2018 6:13 AM REAL ESTATE SITE ANALYST Georgina Elaine, RN Gait/Transferring 0 09/21/2018 6:13 AM REAL ESTATE SITE ANALYST Georgina Elaine, RN Mental Status 0 09/21/2018 6:13 AM REAL ESTATE SITE ANALYST Georgina Paredes, RN * Moshe Scale Question Answer Date of Assessment Author Sensory Perceptions 4 09/21/2018 9:20 AM CS Torsten Gaaine Moisture 4 09/21/2018 9:20 AM REAL ESTATE SITE ANALYST George nda, Sara Activity 4 09/21/2018 9:20 AM REAL ESTATE SITE ANALYST George ndchica, Sara Mobility 4 09/21/2018 9:20 AM REAL ESTATE SITE ANALYST George nda, Sara Nutrition 4 09/21/2018 9:20 AM REAL ESTATE SITE ANALYST George ndchica, Sara Friction and Shear 3 09/21/2018 9:20 AM Sara Brown Moshe Scale Score 23 09/21/2018 9:20 AM REAL ESTATE SITE ANALYST Torsten Marquisaine * Integumentary Question Answer Date of Assessment Author Skin Color Appropriate for ethnicity 09/21/2018 9:20 AM Sara Brown Skin Condition/Temp Warm;Dry 09/21/2018 9:20 AM CS Shanthi Leonarda Sara Skin Integrity Surgical incision 09/21/2018 9:20 AM CS Shanthi Leonarda Sara Skin Location vagina 09/21/2018 9:20 AM REAL ESTATE SITE ANALYST Sara Aceves * Moshe Scale Question Answer Date of Assessment Author Moshe Scale Used Moshe 09/21/2018 9:20 AM Sara Brown documented as of this encounter Mental Status * Neuro (WDL) Answer Entry Date Author WDL 09/21/2018 6:13 AM Georgina Aguirre, RN * Question Answer Entry Date Author Level of Consciousness Alert;Awake 01/28/201 9 9:20 AM REAL ESTATE SITE ANALYST Sara Marquis Orientation Oriented X4 (person, place, time, situation) 09/21/2018 9:20 AM REAL ESTATE SITE ANALYST Sara Marquis Neuro (WDL) WDL 09/21/2018 9:20 AM REAL ESTATE SITE ANALYST Sara Marquis documented in this encounter Plan of Treatment Not on file documented as of this encounter Procedures Procedure Name Priority Date/Time Associated Diagnosis Comments SCAN - PATHOLOGY 09/28/2018 12:0 0 AM REAL ESTATE SITE ANALYST PROCEDURE - RESULT 09/23/2018 12 :00 AM REAL ESTATE SITE ANALYST PROCEDURE - RESULT 09/22/2018 12 :00 AM REAL ESTATE SITE ANALYST documented in this encounter Results * SCAN - PATHOLOGY (09/28/2018 12:00 AM REAL ESTATE SITE ANALYST) Narrative 09/28/2018 12:00 AM REAL ESTATE SITE ANALYST Ordered by an unspecified provider. Historical Provider Final Res ult * PROCEDURE - RESULT (09/23/2018 12:00 AM REAL ESTATE SITE ANALYST) Narrative 09/23/2018 12:00 AM REAL ESTATE SITE ANALYST Ordered by an unspecified provider. Historical Provider Final Res ult * PROCEDURE - RESULT (09/22/2018 12:00 AM REAL ESTATE SITE ANALYST) Narrative 09/22/2018 12:00 AM REAL ESTATE SITE ANALYST Ordered by an unspecified provider. Historical Provider Final Res ult documented in this encounter Visit Diagnoses Not on filedocumented in this encounter Additional Health Concerns Infection Onset Date Last Indicated Resolved Time COVID: Suspected 01/15/2022 01/15/2022 01/15/2022 5:37 PM CDT COVID: Suspected 07/22/2022 07/22/2022 07/22/2022 10:27 PM REAL ESTATE SITE ANALYST COVID: Suspected 08/21/2022 08/21/2022 08/21/2022 5:15 PM REAL ESTATE SITE ANALYST COVID: Suspected 10/13/2023 10/13/2023 10/13/2023 11:30 AM REAL ESTATE SITE ANALYST COVID: Suspected 05/20/2024 05/20/2024 05/20/2024 10:04 AM CDT documented as of this encounter Care Teams Cane Flume Chute Operator Relationship Specialty Start Date End Date Lelia Owen PA [address] [place] [address] PCP - General 07/04/17 Stu Lee MD [address] [facility] [address] [place], [place] [id number] Referring Physician Nephrology 06/14/21 Tere Araya, RN [address] [place] [address] Registered Nurse Acls Specialist 06/14/2107/09 Uday Gamble RN [address] [facility] [address] [place], [place] [id number] Acls Specialist 07/09/22 documented as of this encounter
--- OUTSIDE RECORDS SUMMARY | 2025-07-26 15:46 | XMS_ITS | Encounter Summary ---
Author Organization [facility] Facility Care Team Providers Care Registered Nurse Behavioral Health Name Role Phone Lelia Owen Primary Care Provider [phone] Stu Lee MD Unavailable [phone] Tere Araya RN Unavailable [phone] Uday Gamble RN Unavailable Encounter Details Date Type Department Care Team (Latest Contact Info) Description 01/08/2018 Orders Only [facility] CLINCONV ProviderKim MD [address] [place] [address] Social History Tobacco Use Types Packs/Day Years Used Date Smoking Tobacco: Never Comments Unknown Sex and Gender Information Value Date Recorded Sex Assigned at Not on file Legal Sex Female 9:13 PM GAME PRESERVE MANAGER Gender Identity Female 01/12/2021 10:32 AM CDT Sexual Orientation Straight 05/05/2019 9: 16 AM CDT documented as of this encounter Plan of Treatment Not on file documented as of this encounter Procedures Procedure Name Priority Date/Time Associated Diagnosis Comments SCAN - LABS 01/08/2018 12:00 AM CDT documented in this encounter Results * SCAN - LABS (01/08/2018 12:00 AM CDT) Narrative 01/08/2018 12:00 AM CDT Ordered by an unspecified provider. us Historical Provider Final Res ult documented in this encounter Visit Diagnoses Not on filedocumented in this encounter Additional Health Concerns Infection Onset Date Last Indicated Resolved Time COVID: Suspected 01/15/2022 01/15/2022 01/15/2022 5:37 PM CDT COVID: Suspected 07/22/2022 07/22/2022 07/22/2022 10:27 PM GAME PRESERVE MANAGER COVID: Suspected 08/21/2022 08/21/2022 08/21/2022 5:15 PM GAME PRESERVE MANAGER COVID: Suspected 10/13/2023 10/13/2023 10/13/2023 11:30 AM GAME PRESERVE MANAGER COVID: Suspected 05/20/2024 05/20/2024 05/20/2024 10:04 AM CDT documented as of this encounter Care Teams Registered Nurse Behavioral Health Relationship Specialty Start Date End Date Lelia Owen PA [address] [place] [address] PCP - General 07/04/17 Stu Lee MD [address] [facility] [address] [place] [address] Referring Physician Nephrology 06/14/21 Tere Araya RN [address] [place] [address] Registered Nurse Fence Making Machine Operator 06/14/2107/09 Uday Gamble, ARCHANA [address] [facility] [address] [place] [address] Fence Making Machine Operator 07/09/22 documented as of this encounter
== END 2025-07-26 14:27 | disposition home or self-care (01) ==
PROVIDERS: PCP Physician Assistant; Visit Provider Physician Assistant
DX: Z12.31 Encounter for screening mammogram for malignant neoplasm of breast (principal)
CPT/HCPCS: 77063; 77067